=== PATIENT | male | born 1955 | race Caucasian/White ===

== ENCOUNTER 2017-12-27 06:40 | Emergency (ER) | payer MEDICAID ==
[~2017-12-27] VITALS: Ht 177.8 cm; Wt 90.7 kg
[2017-12-27 06:59] VITALS: BP 139/88
[2017-12-27] MEDS ORDERED: DOCUSATE SOD 100 MG CAP PO ONE (07:45)
[2017-12-27] MEDS ORDERED: FLEET ENEMA(ADULT) 135 ML PR ONE (08:15)
== END 2017-12-27 10:59 | disposition home or self-care (01) ==
LOC: ER 06:40 → EDBD 06:40 → ER 10:59
DX: K59.00 Constipation, unspecified (principal); F17.210 Nicotine dependence, cigarettes, uncomplicated; I10 Essential (primary) hypertension; Z88.2 Allergy status to sulfonamides
CPT/HCPCS: 74018; 93005

== ENCOUNTER 2017-12-28 07:38 | Inpatient (IN) | payer MEDICAID ==
[~2017-12-28] VITALS: Ht 180.3 cm; Wt 82.2 kg
[2017-12-28 08:41] LABS: Basophils # (auto) 0 uL; Basophils % (auto) 0.1 % (0.0-2.0); Eosinophils # (auto) 0 uL; Hemoglobin 17.4 g/dL (13.5-17.5); Lymphocytes # (auto) 0.7 uL; Lymphocytes % (auto) 3.1 % (10.0-50.0); Mean Corpuscular Hemoglobin 32.1 pg (28.0-32.0); Mean Corpuscular Volume 94.2 fL (80.0-100.0); Monocytes # (auto) 1.7 uL; Monocytes % (auto) 7.7 % (0.0-12.0); Neutrophils # (auto) 19.5 uL; Neutrophils % (auto) 89.1 % (37.0-80.0); Platelet Count (auto) 398 10^3/uL (140-450); Red Blood Cells 5.42 10^6/uL (4.5-5.90); Red Cell Distribution Width 13.5 % (11.8-14.3); White Blood Cell 21.9 10^3/uL (4.4-10.8)
[2017-12-28 09:01] LABS: Albumin 2.9 g/dL (3.4-5.0); BUN/Creatinine Ratio 14.6; Calcium 9.1 mg/dL (8.5-10.1); Potassium 4.6 mmol/L (3.5-5.1); Total Protein 6.3 g/dL (6.4-8.2)
[2017-12-28] MEDS ORDERED: PROMETHAZINE HCL 25 MG/ML 1ML IV ONE (09:45)
[2017-12-28] MEDS ORDERED: MORPHINE SULFATE 4 MG/ML SYR/VIAL IV ONE (09:45)
[2017-12-28] MEDS ORDERED: NALBUPHINE HCL 10 MG/1ml INJECTION IV ONE (10:00)
[2017-12-28] MEDS ORDERED: SODIUM CHLORIDE 0.9% 1,000 ML IV ONE ×4 (10:03→10:15)
[2017-12-28] MEDS ORDERED: VANCOMYCIN 1GM/250ML 250 ML IV ONE (10:15)
[2017-12-28] MEDS ORDERED: PIPERACILLIN-TAZOB 3.375GM 100 ML IV ONE (10:15)
[2017-12-28] MEDS ORDERED: FLEET ENEMA(ADULT) 135 ML PR ONE (11:00)
[2017-12-28] MEDS ORDERED: MORPHINE SULFATE 4 MG/ML SYR/VIAL IV PRN ×4 (11:00→18:00)
[2017-12-28] MEDS ORDERED: VANCOMYCIN PER PHARMACY 0 MG IV SCH (11:00)
[2017-12-28] MEDS ORDERED: SODIUM CHLORIDE 0.9% 500 ML IV ONE (11:00)
[2017-12-28] MEDS ORDERED: NITROGLYCERIN 0.4 MG SL TAB SL PRN (11:00)
[2017-12-28] MEDS ORDERED: ALBUTEROL SULF 2.5 MG/0.5ML(0.5%) NEB SOLN NEB PRN (11:00)
[2017-12-28] MEDS ORDERED: IPRATROPIUM BROM 0.5 MG/2.5ML INH SOL NEB PRN (11:00)
[2017-12-28 11:11] LABS: Lactic Acid w/Reflex 5.9 mmol/L (0.4-2.0)
[2017-12-28] MEDS ORDERED: DOCUSATE SOD 100 MG CAP PO ONE (11:15)
[2017-12-28] MEDS ORDERED: PANTOPRAZOLE 40 MG/10 ML VIAL IV ONE (11:30)
[2017-12-28 11:58] LABS: Cholesterol 97 mg/dL (< 200); HDL Cholesterol 65 mg/dL (40-59); LDL Cholesterol 27 mg/dL (< 100); Triglycerides 50 mg/dL (< 150)
[2017-12-28] MEDS ORDERED: LACTULOSE 20Gm/30ML SOLN PO SCH (12:00)
[2017-12-28] MEDS ORDERED: D5W/SOD CHLO 0.9% 1,000 ML IV SCH (12:00)
[2017-12-28] MEDS: ALBUMIN 25% 100 ML IV SCH ×3 (12:16→18:00)
[2017-12-28] MEDS ORDERED: metroNIDAZOLE 500MG/100ML 100 ML IV SCH (13:00)
[2017-12-28] MEDS ORDERED: VANCOMYCIN 1GM/250ML 250 ML IV SCH (14:00)
[2017-12-28 14:11] VITALS: BP 97/62
[2017-12-28] MEDS ORDERED: SODIUM BICARBONATE 50ML VIAL 50 ML in SOD CHL 0.45% 1,000 ML IV SCH (15:15)
[2017-12-28] MEDS ORDERED: LIDOCAINE 1% (LOCAL ANESTH.) PF 5ml SDV ONE (15:22)
[2017-12-28] MEDS ORDERED: SUCCINYLCHOLINE CHLORIDE 20 MG/ML 10ML VIAL IV ONE (15:22)
[2017-12-28] MEDS ORDERED: MIDAZOLAM HCL 1MG/1ML-2 ML VIAL ONE ×2 (15:24→17:18)
[2017-12-28] MEDS ORDERED: ceFAZolin 1GM/50ML 50 ML IV ONE (15:25)
[2017-12-28] MEDS ORDERED: ETOMIDATE (2MG/ML) 20ML VIAL IV ONE (15:26)
[2017-12-28] MEDS ORDERED: ROCURONIUM 10MG/ML 10ML VIAL IV ONE (15:28)
[2017-12-28] MEDS ORDERED: LIDOCAINE HCL 2% TOP JELLY 5ML TOP ONE (15:39)
[2017-12-28] MEDS ORDERED: fentaNYL CITRATE 100 MCG/2 ML VL ONE (16:29)
[2017-12-28] MEDS: PIPERACILLIN-TAZOB 2.25GM 50 ML IV SCH ×2 (17:00→23:00)
[2017-12-28] MEDS ORDERED: ePHEDrine SULFATE 50 MG/ML AMP IV PRN (17:00)
[2017-12-28] MEDS ORDERED: MIDAZOLAM HCL 1MG/1ML-2 ML VIAL IV PRN ×2 (17:00→18:00)
[2017-12-28] MEDS ORDERED: PHENYLEPHRINE HCL 10 MG/ML VL ONE (17:24)
[2017-12-28] MEDS: fentaNYL CITRATE 100 MCG/2 ML VL IV ONE ×2 (18:00→18:59)
[2017-12-28] MEDS ORDERED: D5W/LACTATED RINGERS 1,000 ML IV SCH (18:00)
[2017-12-28] MEDS ORDERED: D5W/SOD CHL 0.45%/KCL 20MEQ 1,000 ML IV ONE (18:00)
[2017-12-28] MEDS: MIDAZOLAM DRIP 50 mg/50mL 50 ML IV SCH (18:11)
[2017-12-28 18:17] LABS: INR 1.34 (0.9-1.15); Partial Thromboplastin Time 63.7 sec (22.64-33.71); Prothrombin Time 14.6 sec (9.37-12.3)
[2017-12-28] MEDS ORDERED: MIDAZOLAM DRIP 50 mg/50mL 50 ML IV ONE (18:20)
[2017-12-28 18:33] VITALS: BP 135/88
[2017-12-28] MEDS: fentaNYL Drip 2500mCg/250mlNS 250 ML IV SCH (18:50)
[2017-12-28] MEDS: PROPOFOL 100 ML IV SCH (19:09)
[2017-12-28] MEDS: SODIUM BICARBONATE 50ML VIAL 50 ML in SOD CHL 0.45% 1,000 ML IV SCH (19:15)
[2017-12-28] MEDS: MORPHINE SULFATE 4 MG/ML SYR/VIAL IV PRN (19:41)
[2017-12-28] MEDS ORDERED: PROPOFOL 100 ML IV ONE (20:18)
[2017-12-28 21:00] VITALS: BP 76/50
[2017-12-28] MEDS: D5W/SOD CHL 0.45%/KCL 20MEQ 1,000 ML IV SCH (21:15)
[2017-12-28] MEDS: ALBUMIN 25% 50 ML IV SCH ×3 (21:20→23:30)
[2017-12-28] MEDS: metroNIDAZOLE 500MG/100ML 100 ML IV SCH (22:00)
[2017-12-28] MEDS ORDERED: DOCUSATE SOD 100 MG CAP PO SCH (22:00)
[2017-12-28 22:12] LABS: Basophils # (auto) 0 uL; Basophils % (auto) 0.2 % (0.0-2.0); Eosinophils # (auto) 0 uL; Eosinophils % (auto) 0.1 % (0.0-7.0); Hematocrit 33.1 % (41.0-53.0); Hemoglobin 11.5 g/dL (13.5-17.5); Lymphocytes # (auto) 0.5 uL; Lymphocytes % (auto) 11.7 % (10.0-50.0); Mean Corpuscular Hemoglobin 32.8 pg (28.0-32.0); Mean Corpuscular Hgb Conc. 34.8 g/dL (32.0-36.0); Mean Corpuscular Volume 94.1 fL (80.0-100.0); Monocytes # (auto) 0.2 uL; Monocytes % (auto) 3.8 % (0.0-12.0); Neutrophils # (auto) 3.8 uL; Neutrophils % (auto) 84.2 % (37.0-80.0); Nucleated Red Blood Cells % 0.1 %; Platelet Count (auto) 285 10^3/uL (140-450); Red Blood Cells 3.52 10^6/uL (4.5-5.90); Red Cell Distribution Width 13.3 % (11.8-14.3); White Blood Cell 4.6 10^3/uL (4.4-10.8)
[2017-12-28 22:19] VITALS: BP 91/58
[2017-12-28 22:32] LABS: INR 1.34 (0.9-1.15); Prothrombin Time 14.6 sec (9.37-12.3)
[2017-12-28 22:33] LABS: BUN/Creatinine Ratio 29.8; Calcium 7.4 mg/dL (8.5-10.1); Potassium 4.2 mmol/L (3.5-5.1)
[2017-12-28 22:42] LABS: Partial Thromboplastin Time 85.6 sec (22.64-33.71)
[2017-12-28] MEDS ORDERED: NOREPINEPHRINE 8 MG/250ML KIT 250 ML IV SCH (23:04)
[2017-12-28] MEDS ORDERED: NOREPINEPHRINE 8 MG/250ML KIT 250 ML IV ONE (23:06)
[2017-12-29] VITALS (65 sets, daily range): BP systolic 89–131; BP diastolic 48–79
[2017-12-29] MEDS: ALBUMIN 25% 50 ML IV SCH (00:15)
[2017-12-29] MEDS: ALBUMIN 25% 100 ML IV SCH ×2 (02:00→10:00)
[2017-12-29] MEDS: SODIUM BICARBONATE 50ML VIAL 50 ML in SOD CHL 0.45% 1,000 ML IV SCH ×4 (02:15→23:15)
[2017-12-29 04:13] LABS: Basophils # (auto) 0 uL; Basophils % (auto) 0.1 % (0.0-2.0); Eosinophils # (auto) 0 uL; Eosinophils % (auto) 0.4 % (0.0-7.0); Hematocrit 26.2 % (41.0-53.0); Hemoglobin 9.4 g/dL (13.5-17.5); Lymphocytes # (auto) 0.3 uL; Lymphocytes % (auto) 11.4 % (10.0-50.0); Mean Corpuscular Hemoglobin 33.4 pg (28.0-32.0); Mean Corpuscular Hgb Conc. 35.8 g/dL (32.0-36.0); Mean Corpuscular Volume 93.3 fL (80.0-100.0); Monocytes # (auto) 0.2 uL; Monocytes % (auto) 5.2 % (0.0-12.0); Neutrophils # (auto) 2.4 uL; Neutrophils % (auto) 82.9 % (37.0-80.0); Platelet Count (auto) 234 10^3/uL (140-450); Red Blood Cells 2.81 10^6/uL (4.5-5.90); Red Cell Distribution Width 12.9 % (11.8-14.3); White Blood Cell 2.9 10^3/uL (4.4-10.8)
[2017-12-29 04:43] LABS: Bilirubin, Total 0.7 mg/dL (0.2-1.0); Magnesium 3.5 mg/dL (1.6-2.6); Phosphorus 3.1 mg/dL (2.5-4.90); Potassium 3.9 mmol/L (3.5-5.1); Total Protein 4.8 g/dL (6.4-8.2)
[2017-12-29] MEDS: PIPERACILLIN-TAZOB 2.25GM 50 ML IV SCH ×4 (05:20→23:58)
[2017-12-29] MEDS: metroNIDAZOLE 500MG/100ML 100 ML IV SCH ×3 (06:00→22:00)
[2017-12-29] MEDS: PANTOPRAZOLE 40 MG/10 ML VIAL IV SCH (10:40)
[2017-12-29] MEDS: fentaNYL Drip 2500mCg/250mlNS 250 ML IV SCH (10:43)
[2017-12-29] MEDS: D5W/SOD CHL 0.45%/KCL 20MEQ 1,000 ML IV SCH ×2 (11:07→11:12)
[2017-12-29] MEDS: ALBUTEROL SULF 2.5 MG/0.5ML(0.5%) NEB SOLN NEB SCH ×2 (11:58→19:00)
[2017-12-29] MEDS: IPRATROPIUM BROM 0.5 MG/2.5ML INH SOL NEB SCH ×2 (11:58→19:00)
[2017-12-29] MEDS: MIDAZOLAM DRIP 50 mg/50mL 50 ML IV SCH (18:44)
[2017-12-29] MEDS: PROPOFOL 100 ML IV SCH (19:09)
[2017-12-30] VITALS (64 sets, daily range): BP systolic 5–143; BP diastolic 46–107
[2017-12-30] MEDS: IPRATROPIUM BROM 0.5 MG/2.5ML INH SOL NEB SCH ×4 (00:06→18:00)
[2017-12-30] MEDS: ALBUTEROL SULF 2.5 MG/0.5ML(0.5%) NEB SOLN NEB SCH ×4 (00:06→18:00)
[2017-12-30 04:27] LABS: Basophils # (auto) 0 uL; Eosinophils # (auto) 0 uL; Eosinophils % (auto) 0.4 % (0.0-7.0); Lymphocytes # (auto) 0.6 uL; Monocytes # (auto) 0.3 uL; Nucleated Red Blood Cells % 0.1 %; Red Blood Cells 2.57 10^6/uL (4.5-5.90); White Blood Cell 6.4 10^3/uL (4.4-10.8)
[2017-12-30 04:29] LABS: Basophils % (auto) 0.2 % (0.0-2.0); Hemoglobin 8.4 g/dL (13.5-17.5); Lymphocytes % (auto) 8.8 % (10.0-50.0); Mean Corpuscular Hemoglobin 32.6 pg (28.0-32.0); Mean Corpuscular Hgb Conc. 34.8 g/dL (32.0-36.0); Mean Corpuscular Volume 93.5 fL (80.0-100.0); Monocytes % (auto) 4.8 % (0.0-12.0); Neutrophils # (auto) 5.5 uL; Neutrophils % (auto) 85.8 % (37.0-80.0); Platelet Count (auto) 199 10^3/uL (140-450); Red Cell Distribution Width 13.2 % (11.8-14.3)
[2017-12-30 04:43] LABS: Albumin 2.5 g/dL (3.4-5.0); Calcium 7.8 mg/dL (8.5-10.1); Potassium 3.8 mmol/L (3.5-5.1)
[2017-12-30 04:48] LABS: BUN/Creatinine Ratio 25.4; Bilirubin, Total 0.7 mg/dL (0.2-1.0); Total Protein 4.6 g/dL (6.4-8.2)
[2017-12-30] MEDS: PIPERACILLIN-TAZOB 2.25GM 50 ML IV SCH ×4 (05:00→23:07)
[2017-12-30] MEDS: SODIUM BICARBONATE 50ML VIAL 50 ML in SOD CHL 0.45% 1,000 ML IV SCH ×2 (06:15→12:08)
[2017-12-30] MEDS: metroNIDAZOLE 500MG/100ML 100 ML IV SCH ×3 (06:21→21:55)
[2017-12-30] MEDS: PANTOPRAZOLE 40 MG/10 ML VIAL IV SCH (09:48)
[2017-12-30 10:20] LABS: Hepatitis B Surface Antibody Negative
[2017-12-30 10:32] LABS: Hepatitis B Surface Antigen Negative (Negative)
[2017-12-30 10:53] LABS: Hepatitis C Antibody Negative (Negative)
[2017-12-30] MEDS ORDERED: FUROSEMIDE 20 MG/2 ML VIAL ONE (12:20)
[2017-12-30] MEDS ORDERED: POTASSIUM CHL 20MEQ/100ML 100 ML IV ONE (12:30)
[2017-12-30] MEDS ORDERED: FUROSEMIDE 20 MG/2 ML VIAL IV ONE (12:30)
[2017-12-30] MEDS: SODIUM CHLORIDE 0.9% 1,000 ML IV SCH ×2 (13:30→22:30)
[2017-12-30] MEDS: ONDANSETRON HCL 4 MG/2 ML VIAL IV PRN (21:56)
[2017-12-30] MEDS: MORPHINE SULFATE 4 MG/ML SYR/VIAL IV PRN (21:56)
[2017-12-31] VITALS (14 sets, daily range): BP systolic 94–164; BP diastolic 71–116
[2017-12-31] MEDS: IPRATROPIUM BROM 0.5 MG/2.5ML INH SOL NEB SCH ×4 (00:23→19:01)
[2017-12-31] MEDS: ALBUTEROL SULF 2.5 MG/0.5ML(0.5%) NEB SOLN NEB SCH ×4 (00:23→19:01)
[2017-12-31 04:04] LABS: Basophils # (auto) 0 uL; Basophils % (auto) 0.1 % (0.0-2.0); Eosinophils # (auto) 0 uL; Eosinophils % (auto) 0.1 % (0.0-7.0); Hematocrit 25.6 % (41.0-53.0); Lymphocytes # (auto) 0.7 uL; Lymphocytes % (auto) 6.8 % (10.0-50.0); Mean Corpuscular Hemoglobin 32.8 pg (28.0-32.0); Mean Corpuscular Volume 93.5 fL (80.0-100.0); Monocytes # (auto) 0.7 uL; Monocytes % (auto) 6.9 % (0.0-12.0); Neutrophils # (auto) 8.7 uL; Neutrophils % (auto) 86.1 % (37.0-80.0); Platelet Count (auto) 200 10^3/uL (140-450); Red Blood Cells 2.73 10^6/uL (4.5-5.90); White Blood Cell 10.1 10^3/uL (4.4-10.8)
[2017-12-31 04:18] LABS: Albumin 2.7 g/dL (3.4-5.0); BUN/Creatinine Ratio 22.1; Calcium 8.2 mg/dL (8.5-10.1); Potassium 3.3 mmol/L (3.5-5.1)
[2017-12-31 04:21] LABS: Bilirubin, Total 1.1 mg/dL (0.2-1.0); Total Protein 5.1 g/dL (6.4-8.2)
[2017-12-31] MEDS: metroNIDAZOLE 500MG/100ML 100 ML IV SCH ×3 (05:24→22:40)
[2017-12-31] MEDS: PIPERACILLIN-TAZOB 2.25GM 50 ML IV SCH ×2 (05:24→11:45)
[2017-12-31 06:43] LABS: Urine Bacteria NONE SEEN /hpf (None Seen); Urine Blood 2+ /uL (Negative); Urine Specific Gravity 1.014 (1.001-1.035); Urine WBC 2 /hpf (0 - 3)
[2017-12-31] MEDS ORDERED: TPN PER PHARMACY 0 ML IV SCH (09:15)
[2017-12-31 09:16] LABS: Magnesium 2.4 mg/dL (1.6-2.6); Phosphorus 2.6 mg/dL (2.5-4.90); Pre Albumin 9.9 mg/dL (20.0-40.0)
[2017-12-31 09:43] LABS: INR 0.95 (0.9-1.15); Partial Thromboplastin Time 35.2 sec (22.64-33.71); Prothrombin Time 10.4 sec (9.37-12.3)
[2017-12-31] MEDS ORDERED: DEXTROSE (50%) 50ML SYRG IV SCH (09:45)
[2017-12-31] MEDS ORDERED: LORazepam 2MG/ML-1ML VIAL IV ONE (11:45)
[2017-12-31] MEDS: PANTOPRAZOLE 40 MG/10 ML VIAL IV SCH (11:46)
[2017-12-31] MEDS: SODIUM CHLORIDE 0.9% 1,000 ML IV SCH ×2 (11:46→17:54)
[2017-12-31] MEDS: ACCU-CHEK COMFORT CURVE STRIP VI SCH ×2 (12:00→17:53)
[2017-12-31] MEDS: InsuLIN REG 1unit/0.01ml Soln (100units/ml) SC SCH ×2 (12:00→17:53)
[2017-12-31] MEDS ORDERED: LIDOCAINE 1% (LOCAL ANESTH.) PF 5ml SDV ID ONE (12:30)
[2017-12-31] MEDS ORDERED: POTASSIUM CHLORIDE 20 MEQ, LIDOCAINE 1% (LOCAL ANESTH.) 2 ML in SODIUM CHL 0.9% 100 ML IV ONE (14:30)
[2017-12-31] MEDS ORDERED: HYDR-4798 PO (16:23)
[2017-12-31] MEDS ORDERED: TEMA30CA PO (16:23)
[2017-12-31] MEDS ORDERED: SIMV-13 PO (16:23)
[2017-12-31] MEDS ORDERED: METH5TAB2 PO (16:23)
[2017-12-31] MEDS ORDERED: IBUP800T24 PO (16:23)
[2017-12-31] MEDS ORDERED: OMEP20TA PO (16:23)
[2017-12-31] MEDS ORDERED: NALO1TAB2 PO (16:23)
[2017-12-31] MEDS: LEVOFLOXACIN 500MG 100 ML IV SCH (16:34)
[2017-12-31] MEDS: LORazepam 2MG/ML-1ML VIAL IV PRN (17:11)
[2017-12-31] MEDS: MORPHINE SULFATE 4 MG/ML SYR/VIAL IV PRN (18:39)
[2017-12-31] MEDS ORDERED: MORPHINE SULFATE 4 MG/ML SYR/VIAL IV ONE (19:15)
[2017-12-31] MEDS ORDERED: PPN PER PHARMACY IV NR ×8 (20:00)
[2017-12-31] MEDS: SODIUM CHLOR 0.9% PF (SALINE LOCK) 10ML VIAL IV SCH (22:41)
[2018-01-01] VITALS: BP 142/86
[2018-01-01] MEDS: IPRATROPIUM BROM 0.5 MG/2.5ML INH SOL NEB SCH ×4 (00:20→11:21)
[2018-01-01] MEDS: ALBUTEROL SULF 2.5 MG/0.5ML(0.5%) NEB SOLN NEB SCH ×4 (00:20→18:00)
[2018-01-01] MEDS: MORPHINE SULFATE 4 MG/ML SYR/VIAL IV PRN ×3 (01:26→21:15)
[2018-01-01 04:00] VITALS: BP 138/84
[2018-01-01] MEDS: SODIUM CHLORIDE 0.9% 1,000 ML IV SCH ×2 (04:30→12:31)
[2018-01-01 05:19] LABS: Basophils # (auto) 0 uL; Basophils % (auto) 0.4 % (0.0-2.0); Eosinophils # (auto) 0 uL; Eosinophils % (auto) 0.1 % (0.0-7.0); Hematocrit 25.4 % (41.0-53.0); Hemoglobin 8.9 g/dL (13.5-17.5); Lymphocytes # (auto) 0.6 uL; Lymphocytes % (auto) 7.8 % (10.0-50.0); Mean Corpuscular Hemoglobin 32.6 pg (28.0-32.0); Mean Corpuscular Volume 93.2 fL (80.0-100.0); Monocytes # (auto) 1.1 uL; Monocytes % (auto) 13.4 % (0.0-12.0); Neutrophils # (auto) 6.5 uL; Neutrophils % (auto) 78.3 % (37.0-80.0); Nucleated Red Blood Cells % 0.1 %; Platelet Count (auto) 222 10^3/uL (140-450); Red Blood Cells 2.72 10^6/uL (4.5-5.90); Red Cell Distribution Width 13.8 % (11.8-14.3); White Blood Cell 8.3 10^3/uL (4.4-10.8)
[2018-01-01 05:39] LABS: Albumin 2.6 g/dL (3.4-5.0); Bilirubin, Total 0.8 mg/dL (0.2-1.0); Calcium 7.9 mg/dL (8.5-10.1); Magnesium 2.4 mg/dL (1.6-2.6); Potassium 3.3 mmol/L (3.5-5.1); Total Protein 5.4 g/dL (6.4-8.2)
[2018-01-01] MEDS: InsuLIN REG 1unit/0.01ml Soln (100units/ml) SC SCH ×5 (06:00→23:21)
[2018-01-01] MEDS: metroNIDAZOLE 500MG/100ML 100 ML IV SCH ×3 (06:00→21:14)
[2018-01-01] MEDS: ACCU-CHEK COMFORT CURVE STRIP VI SCH ×5 (06:00→23:16)
[2018-01-01] MEDS: SODIUM CHLOR 0.9% PF (SALINE LOCK) 10ML VIAL IV SCH ×2 (10:00→21:15)
[2018-01-01] MEDS: LEVOFLOXACIN 500MG 100 ML IV SCH (10:39)
[2018-01-01] MEDS: PANTOPRAZOLE 40 MG/10 ML VIAL IV SCH (10:40)
[2018-01-01] MEDS ORDERED: POTASSIUM PHOSP 26.4MEQ(18MMOL) IN NS 100 ML IV ONE (11:45)
[2018-01-01 12:00] VITALS: BP 139/89
[2018-01-01 16:17] VITALS: BP 155/94
[2018-01-01 19:56] VITALS: BP 159/96
[2018-01-01] MEDS ORDERED: TPN PER PHARMACY IV NR ×10 (20:00)
[2018-01-02] MEDS: IPRATROPIUM BROM 0.5 MG/2.5ML INH SOL NEB SCH ×5 (00:52→18:31)
[2018-01-02] MEDS: ALBUTEROL SULF 2.5 MG/0.5ML(0.5%) NEB SOLN NEB SCH ×4 (00:52→18:30)
[2018-01-02] MEDS: MORPHINE SULFATE 4 MG/ML SYR/VIAL IV PRN ×3 (02:51→21:32)
[2018-01-02] MEDS: ACCU-CHEK COMFORT CURVE STRIP VI SCH ×3 (05:22→18:13)
[2018-01-02] MEDS: metroNIDAZOLE 500MG/100ML 100 ML IV SCH ×4 (05:22→21:31)
[2018-01-02] MEDS: InsuLIN REG 1unit/0.01ml Soln (100units/ml) SC SCH ×5 (05:22→23:49)
[2018-01-02 05:29] LABS: Basophils # (auto) 0 uL; Basophils % (auto) 0.1 % (0.0-2.0); Eosinophils # (auto) 0 uL; Eosinophils % (auto) 0.1 % (0.0-7.0); Hematocrit 29.3 % (41.0-53.0); Hemoglobin 10.1 g/dL (13.5-17.5); Lymphocytes % (auto) 8.2 % (10.0-50.0); Mean Corpuscular Hemoglobin 31.9 pg (28.0-32.0); Mean Corpuscular Hgb Conc. 34.4 g/dL (32.0-36.0); Mean Corpuscular Volume 92.7 fL (80.0-100.0); Monocytes # (auto) 1.4 uL; Monocytes % (auto) 11.6 % (0.0-12.0); Neutrophils # (auto) 9.5 uL; Nucleated Red Blood Cells % 0.4 %; Platelet Count (auto) 272 10^3/uL (140-450); Red Blood Cells 3.16 10^6/uL (4.5-5.90); White Blood Cell 11.9 10^3/uL (4.4-10.8)
[2018-01-02 05:53] LABS: Albumin 2.7 g/dL (3.4-5.0); BUN/Creatinine Ratio 24.6; Bilirubin, Total 1.1 mg/dL (0.2-1.0); Calcium 8.3 mg/dL (8.5-10.1); Magnesium 2.1 mg/dL (1.6-2.6); Phosphorus 2.4 mg/dL (2.5-4.90); Total Protein 5.9 g/dL (6.4-8.2)
[2018-01-02 06:08] VITALS: BP 154/92
[2018-01-02] MEDS: SODIUM CHLORIDE 0.9% 1,000 ML IV SCH (06:58)
[2018-01-02] MEDS ORDERED: POTASSIUM CHL 20 Meq TABLET PO ONE (07:15)
[2018-01-02 08:00] VITALS: BP 153/98
[2018-01-02] MEDS: LEVOFLOXACIN 500MG 100 ML IV SCH (10:00)
[2018-01-02] MEDS: PANTOPRAZOLE 40 MG/10 ML VIAL IV SCH (10:00)
[2018-01-02] MEDS: SODIUM CHLOR 0.9% PF (SALINE LOCK) 10ML VIAL IV SCH ×2 (10:00→21:35)
[2018-01-02] MEDS ORDERED: POTASSIUM CHLORIDE 40 MEQ, LIDOCAINE 1% (LOCAL ANESTH.) 4 ML in SODIUM CHL 0.9% 250 ML IV ONE (10:00)
[2018-01-02 11:50] VITALS: BP 151/91
[2018-01-02] MEDS ORDERED: POTASSIUM PHOSP 26.4MEQ(18MMOL) IN NS 100 ML IV ONE (13:00)
[2018-01-02] MEDS: ONDANSETRON HCL 4 MG/2 ML VIAL IV PRN (13:33)
[2018-01-02 15:50] VITALS: BP 144/83
[2018-01-02 19:50] VITALS: BP 165/87
[2018-01-02] MEDS ORDERED: FAT EMULSION IV NR ×10 (20:00)
[2018-01-02] MEDS ORDERED: POTASSIUM PHOSPHATE IV NR ×10 (20:00)
[2018-01-02] MEDS ORDERED: [UNRECOGNIZED DRUG - OTHER] IV NR ×10 (20:00)
[2018-01-02] MEDS ORDERED: POTASSIUM ACETATE IV NR ×10 (20:00)
[2018-01-02] MEDS: LORazepam 2MG/ML-1ML VIAL IV PRN (21:32)
[2018-01-03] MEDS: IPRATROPIUM BROM 0.5 MG/2.5ML INH SOL NEB SCH ×4 (00:50→19:17)
[2018-01-03] MEDS: ALBUTEROL SULF 2.5 MG/0.5ML(0.5%) NEB SOLN NEB SCH ×4 (00:50→19:17)
[2018-01-03] MEDS: SODIUM CHLORIDE 0.9% 1,000 ML IV SCH (03:00)
[2018-01-03] MEDS: ACCU-CHEK COMFORT CURVE STRIP VI SCH ×5 (06:00→23:33)
[2018-01-03] MEDS: InsuLIN REG 1unit/0.01ml Soln (100units/ml) SC SCH ×4 (06:00→23:34)
[2018-01-03] MEDS: metroNIDAZOLE 500MG/100ML 100 ML IV SCH ×3 (06:00→20:54)
[2018-01-03 06:23] LABS: Albumin 2.6 g/dL (3.4-5.0); Calcium 8.6 mg/dL (8.5-10.1); Magnesium 2.3 mg/dL (1.6-2.6); Potassium 3.5 mmol/L (3.5-5.1)
[2018-01-03 06:27] LABS: BUN/Creatinine Ratio 31.7; Bilirubin, Total 1.2 mg/dL (0.2-1.0); Phosphorus 3.4 mg/dL (2.5-4.90); Total Protein 5.9 g/dL (6.4-8.2)
[2018-01-03 08:00] VITALS: BP 149/99
[2018-01-03] MEDS: SODIUM CHLOR 0.9% PF (SALINE LOCK) 10ML VIAL IV SCH ×2 (10:08→20:54)
[2018-01-03] MEDS: PANTOPRAZOLE 40 MG/10 ML VIAL IV SCH (10:08)
[2018-01-03] MEDS: LEVOFLOXACIN 500MG 100 ML IV SCH (10:08)
[2018-01-03] MEDS: MORPHINE SULFATE 4 MG/ML SYR/VIAL IV PRN ×3 (10:20→20:53)
[2018-01-03 12:37] VITALS: BP 130/67
[2018-01-03 15:53] VITALS: BP 131/87
[2018-01-03 19:50] VITALS: BP 149/106
[2018-01-03] MEDS ORDERED: TPN PER PHARMACY IV ONE ×10 (20:00)
[2018-01-03] MEDS: ONDANSETRON HCL 4 MG/2 ML VIAL IV PRN (20:53)
[2018-01-04] VITALS: BP 140/96
[2018-01-04] MEDS: ALBUTEROL SULF 2.5 MG/0.5ML(0.5%) NEB SOLN NEB SCH ×4 (00:55→19:04)
[2018-01-04] MEDS: IPRATROPIUM BROM 0.5 MG/2.5ML INH SOL NEB SCH ×4 (00:55→19:04)
[2018-01-04] MEDS: ONDANSETRON HCL 4 MG/2 ML VIAL IV PRN ×4 (01:38→18:49)
[2018-01-04] MEDS: MORPHINE SULFATE 4 MG/ML SYR/VIAL IV PRN ×5 (01:38→18:49)
[2018-01-04 04:00] VITALS: BP 148/85
[2018-01-04] MEDS: metroNIDAZOLE 500MG/100ML 100 ML IV SCH ×3 (05:30→21:48)
[2018-01-04 05:31] LABS: Basophils # (auto) 0.1 uL; Basophils % (auto) 0.6 % (0.0-2.0); Eosinophils # (auto) 0 uL; Eosinophils % (auto) 0.1 % (0.0-7.0); Hematocrit 31.1 % (41.0-53.0); Hemoglobin 10.6 g/dL (13.5-17.5); Lymphocytes # (auto) 1.5 uL; Lymphocytes % (auto) 6.5 % (10.0-50.0); Mean Corpuscular Hgb Conc. 34.1 g/dL (32.0-36.0); Mean Corpuscular Volume 93.9 fL (80.0-100.0); Monocytes # (auto) 1.9 uL; Neutrophils # (auto) 19.8 uL; Neutrophils % (auto) 84.8 % (37.0-80.0); Nucleated Red Blood Cells % 0.1 %; Platelet Count (auto) 432 10^3/uL (140-450); Red Blood Cells 3.31 10^6/uL (4.5-5.90); Red Cell Distribution Width 14.1 % (11.8-14.3); White Blood Cell 23.3 10^3/uL (4.4-10.8)
[2018-01-04] MEDS: ACCU-CHEK COMFORT CURVE STRIP VI SCH (05:39)
[2018-01-04] MEDS: InsuLIN REG 1unit/0.01ml Soln (100units/ml) SC SCH (06:00)
[2018-01-04 06:17] LABS: Albumin 2.5 g/dL (3.4-5.0); Bilirubin, Total 1.5 mg/dL (0.2-1.0); Calcium 6.5 mg/dL (8.5-10.1); Magnesium 2.4 mg/dL (1.6-2.6); Phosphorus 3.4 mg/dL (2.5-4.90); Potassium 4.7 mmol/L (3.5-5.1); Total Protein 5.9 g/dL (6.4-8.2)
[2018-01-04 08:00] VITALS: BP 138/100
[2018-01-04] MEDS ORDERED: FLUCONAZOLE 200MG/100ML 100 ML IV ONE (10:15)
[2018-01-04 11:46] VITALS: BP 123/84
[2018-01-04] MEDS: LEVOFLOXACIN 500MG 100 ML IV SCH (12:21)
[2018-01-04] MEDS: PANTOPRAZOLE 40 MG/10 ML VIAL IV SCH (12:21)
[2018-01-04] MEDS: SODIUM CHLOR 0.9% PF (SALINE LOCK) 10ML VIAL IV SCH ×2 (12:23→21:48)
[2018-01-04 16:00] VITALS: BP 141/80
[2018-01-04 22:08] VITALS: BP 120/74
[2018-01-05] MEDS: MORPHINE SULFATE 4 MG/ML SYR/VIAL IV PRN (00:18)
[2018-01-05] MEDS: ONDANSETRON HCL 4 MG/2 ML VIAL IV PRN (00:23)
[2018-01-05] MEDS: ALBUTEROL SULF 2.5 MG/0.5ML(0.5%) NEB SOLN NEB SCH ×4 (00:35→20:51)
[2018-01-05] MEDS: IPRATROPIUM BROM 0.5 MG/2.5ML INH SOL NEB SCH ×4 (00:35→20:51)
[2018-01-05 05:14] VITALS: BP 127/92
[2018-01-05] MEDS: metroNIDAZOLE 500MG/100ML 100 ML IV SCH ×3 (05:39→21:30)
[2018-01-05 06:25] LABS: Basophils # (auto) 0 uL; Basophils % (auto) 0.1 % (0.0-2.0); Eosinophils # (auto) 0.1 uL; Mean Corpuscular Volume 94.1 fL (80.0-100.0); Neutrophils % (auto) 84.5 % (37.0-80.0)
[2018-01-05 06:27] LABS: Eosinophils % (auto) 0.3 % (0.0-7.0); Hematocrit 30.6 % (41.0-53.0); Hemoglobin 10.5 g/dL (13.5-17.5); Lymphocytes # (auto) 1.5 uL; Lymphocytes % (auto) 7.6 % (10.0-50.0); Mean Corpuscular Hemoglobin 32.3 pg (28.0-32.0); Mean Corpuscular Hgb Conc. 34.3 g/dL (32.0-36.0); Monocytes # (auto) 1.5 uL; Monocytes % (auto) 7.5 % (0.0-12.0); Neutrophils # (auto) 16.4 uL; Platelet Count (auto) 468 10^3/uL (140-450); Red Blood Cells 3.26 10^6/uL (4.5-5.90); White Blood Cell 19.4 10^3/uL (4.4-10.8)
[2018-01-05 06:34] LABS: Potassium 3.8 mmol/L (3.5-5.1)
[2018-01-05 06:40] LABS: BUN/Creatinine Ratio 35.1; Calcium 8.2 mg/dL (8.5-10.1)
[2018-01-05 09:45] VITALS: BP 132/79
[2018-01-05] MEDS: SODIUM CHLOR 0.9% PF (SALINE LOCK) 10ML VIAL IV SCH ×2 (10:00→21:31)
[2018-01-05] MEDS ORDERED: FLUCONAZOLE 200MG/100ML 100 ML IV SCH (10:00)
[2018-01-05] MEDS: LEVOFLOXACIN 500MG 100 ML IV SCH (10:19)
[2018-01-05] MEDS: PANTOPRAZOLE 40 MG/10 ML VIAL IV SCH (10:19)
[2018-01-05 13:56] VITALS: BP 112/84
[2018-01-05 16:25] VITALS: BP 133/69
[2018-01-05] MEDS: IBUPROFEN 400 MG TAB PO PRN (20:03)
[2018-01-05] MEDS: TEMAZEPAM 15 MG CAP PO PRN (21:30)
[2018-01-05 22:00] VITALS: BP 141/67
[2018-01-06] MEDS: ALBUTEROL SULF 2.5 MG/0.5ML(0.5%) NEB SOLN NEB SCH ×5 (00:39→19:39)
[2018-01-06] MEDS: IPRATROPIUM BROM 0.5 MG/2.5ML INH SOL NEB SCH ×5 (00:39→19:39)
[2018-01-06] MEDS: IBUPROFEN 400 MG TAB PO PRN ×3 (03:33→17:51)
[2018-01-06] MEDS: metroNIDAZOLE 500MG/100ML 100 ML IV SCH (05:29)
[2018-01-06 05:41] LABS: Basophils # (auto) 0 uL; Eosinophils # (auto) 0 uL; Eosinophils % (auto) 0.3 % (0.0-7.0); Lymphocytes # (auto) 1.3 uL; White Blood Cell 13.6 10^3/uL (4.4-10.8)
[2018-01-06 05:43] LABS: Basophils % (auto) 0.3 % (0.0-2.0); Hematocrit 33.7 % (41.0-53.0); Hemoglobin 11.3 g/dL (13.5-17.5); Lymphocytes % (auto) 9.8 % (10.0-50.0); Mean Corpuscular Hemoglobin 31.5 pg (28.0-32.0); Mean Corpuscular Hgb Conc. 33.6 g/dL (32.0-36.0); Mean Corpuscular Volume 93.9 fL (80.0-100.0); Monocytes # (auto) 1.2 uL; Monocytes % (auto) 8.7 % (0.0-12.0); Neutrophils % (auto) 80.9 % (37.0-80.0); Platelet Count (auto) 627 10^3/uL (140-450); Red Blood Cells 3.59 10^6/uL (4.5-5.90); Red Cell Distribution Width 13.8 % (11.8-14.3)
[2018-01-06 05:53] VITALS: BP 130/75
[2018-01-06 09:00] VITALS: BP 129/87
[2018-01-06] MEDS: SODIUM CHLOR 0.9% PF (SALINE LOCK) 10ML VIAL IV SCH ×2 (10:00→21:14)
[2018-01-06] MEDS: LEVOFLOXACIN 500MG 100 ML IV SCH (10:18)
[2018-01-06] MEDS: PANTOPRAZOLE 40 MG TAB PO SCH (10:19)
[2018-01-06 13:00] VITALS: BP 137/76
[2018-01-06] MEDS: metroNIDAZOLE 500 MG TAB PO SCH ×2 (14:00→21:14)
[2018-01-06 17:00] VITALS: BP 143/77
[2018-01-06] MEDS: TEMAZEPAM 15 MG CAP PO PRN (21:14)
[2018-01-06 22:00] VITALS: BP 141/91
[2018-01-07] MEDS: IBUPROFEN 400 MG TAB PO PRN (03:34)
[2018-01-07 05:00] VITALS: BP 132/79
[2018-01-07] MEDS: metroNIDAZOLE 500 MG TAB PO SCH (05:24)
[2018-01-07 05:59] LABS: Eosinophils # (auto) 0.1 uL; Hemoglobin 10.5 g/dL (13.5-17.5); Monocytes # (auto) 1.4 uL; Neutrophils # (auto) 9.1 uL; Red Cell Distribution Width 13.8 % (11.8-14.3)
[2018-01-07 06:07] LABS: Basophils # (auto) 0.1 uL; Basophils % (auto) 0.4 % (0.0-2.0); Eosinophils % (auto) 0.7 % (0.0-7.0); Hematocrit 31.3 % (41.0-53.0); Lymphocytes # (auto) 1.4 uL; Lymphocytes % (auto) 11.9 % (10.0-50.0); Mean Corpuscular Hemoglobin 31.3 pg (28.0-32.0); Mean Corpuscular Hgb Conc. 33.4 g/dL (32.0-36.0); Mean Corpuscular Volume 93.7 fL (80.0-100.0); Monocytes % (auto) 11.3 % (0.0-12.0); Neutrophils % (auto) 75.7 % (37.0-80.0); Platelet Count (auto) 748 10^3/uL (140-450); Red Blood Cells 3.35 10^6/uL (4.5-5.90)
[2018-01-07] MEDS: ALBUTEROL SULF 2.5 MG/0.5ML(0.5%) NEB SOLN NEB SCH ×2 (06:41→13:05)
[2018-01-07] MEDS: IPRATROPIUM BROM 0.5 MG/2.5ML INH SOL NEB SCH ×2 (06:41→13:05)
[2018-01-07 09:00] VITALS: BP 139/93
[2018-01-07] MEDS: SODIUM CHLOR 0.9% PF (SALINE LOCK) 10ML VIAL IV SCH (09:27)
[2018-01-07] MEDS: PANTOPRAZOLE 40 MG TAB PO SCH (09:28)
[2018-01-07] MEDS ORDERED: FLUCONAZOLE 100 MG TAB PO SCH (10:00)
[2018-01-07] MEDS ORDERED: LEVOFLOXACIN 500 MG TAB PO SCH (10:00)
[2018-01-07 13:00] VITALS: BP 146/81
[2018-01-07 13:56] VITALS: BP 146/81
== END 2018-01-07 17:01 | disposition home or self-care (01) | DRG 710 ==
LOC: EDBD 07:38 → ER 07:38 → TELE 07:39 → ICU WEST 20:30 → DOU IN ICU 12-31 08:53 → TELE-WESTW 01-04 17:39 → WEST WING 01-07 03:07
PROVIDERS: ADMIT Internal Medicine; ATTEND Internal Medicine
PROC: 02HV33Z Insertion of Infusion Device into Superior Vena Cava, Percutaneous Approach (ICD-10-PCS; 2017-12-28)
PROC: 5A1945Z Respiratory Ventilation, 24-96 Consecutive Hours (ICD-10-PCS; 2017-12-28)
PROC: 0DTE0ZZ Resection of Large Intestine, Open Approach (ICD-10-PCS; 2017-12-28)
PROC: 0D1N0Z4 Bypass Sigmoid Colon to Cutaneous, Open Approach (ICD-10-PCS; 2017-12-28)
PROC: 0JH63XZ Insertion of Tunneled Vascular Access Device into Chest Subcutaneous Tissue and Fascia, Percutaneous Approach (ICD-10-PCS; 2017-12-28)
PROC: 0D1B0Z4 Bypass Ileum to Cutaneous, Open Approach (ICD-10-PCS; principal; 2017-12-28 15:58)
PROC: 30233N1 Transfusion of Nonautologous Red Blood Cells into Peripheral Vein, Percutaneous Approach (ICD-10-PCS; 2017-12-30)
PROC: 02HV33Z Insertion of Infusion Device into Superior Vena Cava, Percutaneous Approach (ICD-10-PCS; 2017-12-31)
DX: A41.9 Sepsis, unspecified organism (principal); N17.0 Acute kidney failure with tubular necrosis; J96.00 Acute respiratory failure, unspecified whether with hypoxia or hypercapnia; J15.211 Pneumonia due to Methicillin susceptible Staphylococcus aureus; K55.9 Vascular disorder of intestine, unspecified; K59.31 Toxic megacolon; E44.0 Moderate protein-calorie malnutrition; I11.9 Hypertensive heart disease without heart failure; E87.1 Hypo-osmolality and hyponatremia; R65.20 Severe sepsis without septic shock; J44.9 Chronic obstructive pulmonary disease, unspecified; D64.9 Anemia, unspecified; E86.0 Dehydration; F17.210 Nicotine dependence, cigarettes, uncomplicated; G47.00 Insomnia, unspecified; K59.00 Constipation, unspecified; M19.90 Unspecified osteoarthritis, unspecified site; R79.89 Other specified abnormal findings of blood chemistry; B95.61 Methicillin susceptible Staphylococcus aureus infection as the cause of diseases classified elsewhere; E87.6 Hypokalemia; Z79.899 Other long term (current) drug therapy; Z88.2 Allergy status to sulfonamides; Z68.25 Body mass index [BMI] 25.0-25.9, adult
CPT/HCPCS: 36415; 36556; 36569; 36600; 71045; 74018; 74176; 80048; 80053; 80061; 81001; 82040; 82805; 82962; 83605; 83735; 84100; 84443; 84478; 85025; 85610; 85730; 86706; 86803; 86850; 86900; 86901; 86920; 87040; 87070; 87077; 87081; 87186; 87205; 87340; 93005; 94002; 94003; 94640; 96374; 96375; 97116; 97530; 99291; A4565; C9113; J0330; J0690; J1450; J1815; J1956; J2001; J2250; J2405; J2543; J2704; J3480; J3490; J7042; P9047

== ENCOUNTER 2018-01-13 11:27 | Inpatient (IN) | payer MEDICAID ==
[~2018-01-13] VITALS: Ht 180.3 cm; Wt 71.0 kg
[~2018-01-13 11:27] MED LIST: HYDR-4798 PO; IBUP800T24 PO; METH5TAB2 PO; NALO1TAB2 PO; OMEP20TA PO; SIMV-13 PO; TEMA30CA PO
[2018-01-13 12:32] LABS: Basophils # (auto) 0.1 uL; Basophils % (auto) 0.9 % (0.0-2.0); Eosinophils # (auto) 0.1 uL; Eosinophils % (auto) 0.7 % (0.0-7.0); Hematocrit 41.5 % (41.0-53.0); Hemoglobin 13.8 g/dL (13.5-17.5); Lymphocytes # (auto) 1.7 uL; Lymphocytes % (auto) 14.2 % (10.0-50.0); Mean Corpuscular Hemoglobin 31.4 pg (28.0-32.0); Mean Corpuscular Hgb Conc. 33.2 g/dL (32.0-36.0); Mean Corpuscular Volume 94.6 fL (80.0-100.0); Monocytes # (auto) 0.9 uL; Monocytes % (auto) 7.5 % (0.0-12.0); Neutrophils # (auto) 9.1 uL; Neutrophils % (auto) 76.7 % (37.0-80.0); Red Blood Cells 4.39 10^6/uL (4.5-5.90); Red Cell Distribution Width 14.8 % (11.8-14.3); White Blood Cell 11.8 10^3/uL (4.4-10.8)
[2018-01-13 12:35] LABS: Platelet Count (auto) 1472 10^3/uL (140-450)
[2018-01-13 12:54] LABS: Albumin 3.8 g/dL (3.4-5.0); BUN/Creatinine Ratio 14.7; Bilirubin, Total 0.4 mg/dL (0.2-1.0); Calcium 9.5 mg/dL (8.5-10.1); Potassium 4.9 mmol/L (3.5-5.1); Total Protein 8.1 g/dL (6.4-8.2)
[2018-01-13] MEDS ORDERED: SODIUM CHLORIDE 0.9% 500 ML IVB ONE (14:29)
[2018-01-13] MEDS ORDERED: NITROGLYCERIN 0.4 MG SL TAB SL PRN (15:00)
[2018-01-13] MEDS ORDERED: LORazepam 2MG/ML-1ML VIAL IV PRN (15:00)
[2018-01-13] MEDS ORDERED: MORPHINE SULFATE 8mg/ml INJ SDV IV PRN ×3 (15:00)
[2018-01-13] MEDS ORDERED: LEVOFLOXACIN 500MG 100 ML IV ONE (15:00)
[2018-01-13] MEDS ORDERED: ALBUTEROL SULF 2.5 MG/0.5ML(0.5%) NEB SOLN NEB PRN (15:00)
[2018-01-13 15:42] LABS: Amylase 225 U/L (25-115); Lipase 1851 U/L (73-393)
[2018-01-13] MEDS: SODIUM CHLORIDE 0.9% 1,000 ML IV SCH (16:28)
[2018-01-13 21:33] VITALS: BP 93/67
[2018-01-13 22:00] VITALS: BP 118/89
[2018-01-13] MEDS: metroNIDAZOLE 500MG/100ML 100 ML IV SCH (23:29)
[2018-01-13] MEDS: PROMETHAZINE HCL 25 MG/ML 1ML IV PRN (23:30)
[2018-01-14] MEDS: SODIUM CHLORIDE 0.9% 1,000 ML IV SCH ×3 (00:58→21:30)
[2018-01-14 05:00] VITALS: BP 125/85
[2018-01-14] MEDS: metroNIDAZOLE 500MG/100ML 100 ML IV SCH ×3 (05:40→22:42)
[2018-01-14 06:45] LABS: Basophils # (auto) 0 uL; Eosinophils # (auto) 0 uL; Hematocrit 38.8 % (41.0-53.0); Hemoglobin 13.4 g/dL (13.5-17.5)
[2018-01-14 06:47] LABS: Basophils % (auto) 0.3 % (0.0-2.0); Eosinophils % (auto) 0.1 % (0.0-7.0); Lymphocytes % (auto) 7.1 % (10.0-50.0); Mean Corpuscular Hemoglobin 32.2 pg (28.0-32.0); Mean Corpuscular Hgb Conc. 34.4 g/dL (32.0-36.0); Mean Corpuscular Volume 93.6 fL (80.0-100.0); Monocytes # (auto) 0.6 uL; Monocytes % (auto) 4.1 % (0.0-12.0); Neutrophils # (auto) 12.2 uL; Neutrophils % (auto) 88.4 % (37.0-80.0); Red Blood Cells 4.15 10^6/uL (4.5-5.90); Red Cell Distribution Width 14.3 % (11.8-14.3); White Blood Cell 13.7 10^3/uL (4.4-10.8)
[2018-01-14 07:04] LABS: Albumin 3.7 g/dL (3.4-5.0); Bilirubin, Total 0.6 mg/dL (0.2-1.0); Calcium 9.5 mg/dL (8.5-10.1); Potassium 5.2 mmol/L (3.5-5.1); Total Protein 7.7 g/dL (6.4-8.2)
[2018-01-14 07:51] LABS: Platelet Count (auto) 1249 10^3/uL (140-450)
[2018-01-14] MEDS: PROMETHAZINE HCL 25 MG/ML 1ML IV PRN ×2 (09:37→18:41)
[2018-01-14] MEDS: LEVOFLOXACIN 500MG 100 ML IV SCH (09:37)
[2018-01-14] MEDS: ENOXAPARIN SOD 40 MG/0.4 ML SYRINGE SC SCH (09:38)
[2018-01-14] MEDS: PANTOPRAZOLE 40 MG TAB PO SCH (14:11)
[2018-01-14 14:26] VITALS: BP 128/71
[2018-01-14 17:11] VITALS: BP 129/88
[2018-01-14] MEDS: CYCLOBENZAPRINE HCL 10 MG TAB PO PRN (18:41)
[2018-01-14] MEDS: TEMAZEPAM 15 MG CAP PO PRN (22:56)
[2018-01-14 23:43] VITALS: BP 121/80
[2018-01-15 05:43] VITALS: BP 118/85
[2018-01-15] MEDS: metroNIDAZOLE 500MG/100ML 100 ML IV SCH ×3 (06:10→21:02)
[2018-01-15] MEDS: SODIUM CHLORIDE 0.9% 1,000 ML IV SCH ×2 (06:10→16:49)
[2018-01-15 07:30] LABS: Basophils # (auto) 0 uL; Basophils % (auto) 0.1 % (0.0-2.0); Eosinophils # (auto) 0 uL; White Blood Cell 16.9 10^3/uL (4.4-10.8)
[2018-01-15 07:31] LABS: BUN/Creatinine Ratio 37.8; Calcium 9.5 mg/dL (8.5-10.1); Potassium 4.9 mmol/L (3.5-5.1)
[2018-01-15 07:33] LABS: Hematocrit 37.9 % (41.0-53.0); Hemoglobin 13.4 g/dL (13.5-17.5); Lymphocytes % (auto) 6.2 % (10.0-50.0); Mean Corpuscular Hemoglobin 33.3 pg (28.0-32.0); Mean Corpuscular Hgb Conc. 35.2 g/dL (32.0-36.0); Mean Corpuscular Volume 94.5 fL (80.0-100.0); Monocytes # (auto) 0.8 uL; Monocytes % (auto) 4.7 % (0.0-12.0); Red Blood Cells 4.01 10^6/uL (4.5-5.90); Red Cell Distribution Width 14.4 % (11.8-14.3)
[2018-01-15 08:00] VITALS: BP 111/91
[2018-01-15 08:06] LABS: Platelet Count (auto) 1189 10^3/uL (140-450)
[2018-01-15 08:13] LABS: Urine Bacteria FEW /hpf (None Seen); Urine Blood Negative /uL (Negative); Urine Specific Gravity 1.029 (1.001-1.035); Urine WBC 1 /hpf (0 - 3)
[2018-01-15 09:00] VITALS: BP 111/91
[2018-01-15] MEDS: LEVOFLOXACIN 500MG 100 ML IV SCH (09:00)
[2018-01-15] MEDS: CYCLOBENZAPRINE HCL 10 MG TAB PO PRN ×3 (09:00→17:37)
[2018-01-15] MEDS: PANTOPRAZOLE 40 MG TAB PO SCH ×2 (09:00→21:02)
[2018-01-15] MEDS: ENOXAPARIN SOD 40 MG/0.4 ML SYRINGE SC SCH (09:00)
[2018-01-15 09:43] LABS: Albumin 3.7 g/dL (3.4-5.0); Bilirubin, Direct 0.2 mg/dL (0-0.2); Bilirubin, Total 0.6 mg/dL (0.2-1.0); Total Protein 7.6 g/dL (6.4-8.2)
[2018-01-15 13:00] VITALS: BP 117/62
[2018-01-15 17:00] VITALS: BP 116/78
[2018-01-15] MEDS: TEMAZEPAM 15 MG CAP PO PRN (21:06)
[2018-01-15 22:00] VITALS: BP 138/83
[2018-01-16] MEDS: CYCLOBENZAPRINE HCL 10 MG TAB PO PRN ×3 (02:39→21:09)
[2018-01-16] MEDS: SODIUM CHLORIDE 0.9% 1,000 ML IV SCH (02:39)
[2018-01-16] MEDS: metroNIDAZOLE 500MG/100ML 100 ML IV SCH (05:18)
[2018-01-16 05:46] LABS: Basophils # (auto) 0.1 uL; Basophils % (auto) 0.3 % (0.0-2.0); Eosinophils # (auto) 0 uL; Eosinophils % (auto) 0.1 % (0.0-7.0); Mean Corpuscular Hemoglobin 32.9 pg (28.0-32.0); Monocytes # (auto) 1.1 uL; Nucleated Red Blood Cells % 0.1 %
[2018-01-16 05:49] LABS: Hematocrit 34.4 % (41.0-53.0); Lymphocytes # (auto) 1.2 uL; Lymphocytes % (auto) 7.5 % (10.0-50.0); Mean Corpuscular Hgb Conc. 34.8 g/dL (32.0-36.0); Mean Corpuscular Volume 94.3 fL (80.0-100.0); Neutrophils # (auto) 13.3 uL; Neutrophils % (auto) 85.1 % (37.0-80.0); Red Blood Cells 3.65 10^6/uL (4.5-5.90); Red Cell Distribution Width 14.3 % (11.8-14.3); White Blood Cell 15.7 10^3/uL (4.4-10.8)
[2018-01-16 06:02] LABS: Calcium 8.5 mg/dL (8.5-10.1); Potassium 3.9 mmol/L (3.5-5.1)
[2018-01-16 06:03] LABS: Platelet Count (auto) 921 10^3/uL (140-450)
[2018-01-16 06:04] LABS: BUN/Creatinine Ratio 39.3
[2018-01-16 06:09] VITALS: BP 124/79
[2018-01-16] MEDS: PANTOPRAZOLE 40 MG TAB PO SCH ×2 (07:58→21:09)
[2018-01-16 08:00] VITALS: BP 124/88
[2018-01-16 09:00] VITALS: BP 124/88
[2018-01-16] MEDS: ENOXAPARIN SOD 40 MG/0.4 ML SYRINGE SC SCH (10:56)
[2018-01-16] MEDS: SODIUM BICARBONATE 650 MG TAB PO SCH ×2 (10:56→21:09)
[2018-01-16 13:00] VITALS: BP 110/86
[2018-01-16 17:00] VITALS: BP 115/74
[2018-01-16] MEDS: TEMAZEPAM 15 MG CAP PO PRN (21:09)
[2018-01-16 22:00] VITALS: BP 105/43
[2018-01-17 01:25] VITALS: BP 105/43
[2018-01-17 05:22] VITALS: BP 118/80
[2018-01-17 06:48] LABS: Basophils # (auto) 0 uL; Basophils % (auto) 0.3 % (0.0-2.0); Eosinophils # (auto) 0 uL; Hemoglobin 12.2 g/dL (13.5-17.5)
[2018-01-17 06:52] LABS: Eosinophils % (auto) 0.2 % (0.0-7.0); Hematocrit 35.4 % (41.0-53.0); Lymphocytes # (auto) 1.4 uL; Lymphocytes % (auto) 9.4 % (10.0-50.0); Mean Corpuscular Hgb Conc. 34.6 g/dL (32.0-36.0); Mean Corpuscular Volume 92.6 fL (80.0-100.0); Monocytes # (auto) 1.1 uL; Monocytes % (auto) 7.5 % (0.0-12.0); Neutrophils # (auto) 12.2 uL; Neutrophils % (auto) 82.6 % (37.0-80.0); Nucleated Red Blood Cells % 0.1 %; Red Blood Cells 3.82 10^6/uL (4.5-5.90); White Blood Cell 14.8 10^3/uL (4.4-10.8)
[2018-01-17 06:59] LABS: Platelet Count (auto) 876 10^3/uL (140-450)
[2018-01-17 07:02] LABS: BUN/Creatinine Ratio 41.1; Calcium 8.7 mg/dL (8.5-10.1)
[2018-01-17 08:18] VITALS: BP 125/67
[2018-01-17] MEDS ORDERED: SODIUM CHLORIDE 0.9% 1,000 ML IV ONE (08:30)
[2018-01-17] MEDS: PANTOPRAZOLE 40 MG TAB PO SCH ×2 (10:07→21:31)
[2018-01-17] MEDS: ENOXAPARIN SOD 40 MG/0.4 ML SYRINGE SC SCH (10:07)
[2018-01-17] MEDS: SODIUM BICARBONATE 650 MG TAB PO SCH ×2 (10:07→21:31)
[2018-01-17 11:46] VITALS: BP 117/77
[2018-01-17 16:50] VITALS: BP 116/90
[2018-01-17] MEDS: CYCLOBENZAPRINE HCL 10 MG TAB PO PRN (21:31)
[2018-01-17] MEDS: TEMAZEPAM 15 MG CAP PO PRN (21:31)
[2018-01-17 21:56] VITALS: BP 119/69
[2018-01-18 04:39] VITALS: BP 112/72
[2018-01-18 06:56] LABS: Eosinophils # (auto) 0.1 uL; Hemoglobin 11.3 g/dL (13.5-17.5); Mean Corpuscular Hgb Conc. 34.7 g/dL (32.0-36.0); Nucleated Red Blood Cells % 0.2 %
[2018-01-18 06:58] LABS: Basophils # (auto) 0 uL; Basophils % (auto) 0.4 % (0.0-2.0); Eosinophils % (auto) 0.8 % (0.0-7.0); Hematocrit 32.6 % (41.0-53.0); Lymphocytes # (auto) 1.8 uL; Lymphocytes % (auto) 20.6 % (10.0-50.0); Mean Corpuscular Hemoglobin 32.6 pg (28.0-32.0); Mean Corpuscular Volume 93.8 fL (80.0-100.0); Monocytes # (auto) 0.9 uL; Monocytes % (auto) 10.5 % (0.0-12.0); Neutrophils % (auto) 67.7 % (37.0-80.0); Platelet Count (auto) 730 10^3/uL (140-450); Red Blood Cells 3.47 10^6/uL (4.5-5.90); Red Cell Distribution Width 14.1 % (11.8-14.3); White Blood Cell 8.8 10^3/uL (4.4-10.8)
[2018-01-18 07:48] LABS: BUN/Creatinine Ratio 26.8; Calcium 8.2 mg/dL (8.5-10.1); Potassium 3.5 mmol/L (3.5-5.1)
[2018-01-18 08:48] VITALS: BP 119/79
[2018-01-18] MEDS: ENOXAPARIN SOD 40 MG/0.4 ML SYRINGE SC SCH (10:00)
[2018-01-18] MEDS: PANTOPRAZOLE 40 MG TAB PO SCH (10:24)
[2018-01-18] MEDS: SODIUM BICARBONATE 650 MG TAB PO SCH (10:24)
[2018-01-18 17:00] VITALS: BP 121/77
== END 2018-01-18 19:31 | disposition home or self-care (01) | DRG 723 ==
LOC: ER 11:27 → TELE 11:28 → TELE-WESTW 21:02
PROVIDERS: ADMIT Internal Medicine; ATTEND Internal Medicine
DX: B34.9 Viral infection, unspecified (principal); K85.90 Acute pancreatitis without necrosis or infection, unspecified; R65.10 Systemic inflammatory response syndrome (SIRS) of non-infectious origin without acute organ dysfunction; E87.1 Hypo-osmolality and hyponatremia; I10 Essential (primary) hypertension; D47.3 Essential (hemorrhagic) thrombocythemia; E78.5 Hyperlipidemia, unspecified; J44.9 Chronic obstructive pulmonary disease, unspecified; D72.829 Elevated white blood cell count, unspecified; E86.0 Dehydration; M19.90 Unspecified osteoarthritis, unspecified site; D50.0 Iron deficiency anemia secondary to blood loss (chronic); Z93.2 Ileostomy status; Z93.3 Colostomy status; Z88.2 Allergy status to sulfonamides
CPT/HCPCS: 36415; 71045; 74176; 80048; 80053; 80076; 81001; 82150; 83690; 85025; 87040; 87081; 87086; 87493; 96361; 96365; J1956; J3490

== ENCOUNTER 2018-12-30 08:18 | Day surgery (SDC) | payer MEDICAID ==
[2018-12-27 08:45] LABS: Basophils # (auto) 0.1 uL; Basophils % (auto) 1.8 % (0.0-2.0); Eosinophils # (auto) 0.1 uL; Eosinophils % (auto) 2.8 % (0.0-7.0); Hematocrit 43.9 % (41.0-53.0); Lymphocytes # (auto) 1.4 uL; Lymphocytes % (auto) 27.2 % (10.0-50.0); Mean Corpuscular Hemoglobin 31.9 pg (28.0-32.0); Mean Corpuscular Hgb Conc. 34.1 g/dL (32.0-36.0); Mean Corpuscular Volume 93.5 fL (80.0-100.0); Monocytes # (auto) 0.4 uL; Neutrophils % (auto) 60.2 % (37.0-80.0); Nucleated Red Blood Cells % 0.1 %; Platelet Count (auto) 413 10^3/uL (140-450); Red Cell Distribution Width 13.8 % (11.8-14.3)
[2018-12-27 09:01] LABS: INR 0.94 (0.9-1.15); Partial Thromboplastin Time 26.3 sec (23.78-33.04); Prothrombin Time 10.1 sec (9.27-12.13)
[~2018-12-30] VITALS: Ht 180.3 cm; Wt 74.8 kg
[~2018-12-30 08:18] MED LIST changes: +LISI10TA6 PO; -METH5TAB2 PO; -NALO1TAB2 PO
[2018-12-30] MEDS ORDERED: diphenhdrAMINE HCL 50 MG/1 ML VL ONE (09:17)
[2018-12-30] MEDS ORDERED: SODIUM CHLORIDE LOCK 10 ML ONE (09:17)
[2018-12-30] MEDS: fentaNYL CITRATE 100 MCG/2 ML VL ONE ×3 (10:19→10:29)
[2018-12-30] MEDS: MIDAZOLAM HCL 5 MG/ML-1ML VIAL ONE ×4 (10:19→10:33)
[2018-12-30] MEDS ORDERED: MIDAZOLAM HCL 5 MG/ML-1ML VIAL ONE (10:32)
[2018-12-30] MEDS ORDERED: fentaNYL CITRATE 100 MCG/2 ML VL ONE (10:32)
[2018-12-30 11:15] VITALS: BP 125/89
== END 2018-12-30 11:17 | disposition home or self-care (01) ==
LOC: SUR 08:18
PROVIDERS: ATTEND Internal Medicine Gastroenterology
DX: K52.89 Other specified noninfective gastroenteritis and colitis (principal); K63.2 Fistula of intestine; K43.5 Parastomal hernia without obstruction or gangrene; K94.09 Other complications of colostomy; M19.90 Unspecified osteoarthritis, unspecified site; J44.9 Chronic obstructive pulmonary disease, unspecified; F41.9 Anxiety disorder, unspecified; F17.210 Nicotine dependence, cigarettes, uncomplicated; M79.89 Other specified soft tissue disorders; Z88.1 Allergy status to other antibiotic agents; Z79.899 Other long term (current) drug therapy
CPT/HCPCS: 36415; 44388; 85025; 85610; 85730; J2250; J3010; J7030; 99152

== ENCOUNTER 2024-12-10 20:57 | Inpatient (IN) | payer MEDICARE, MEDICAID ==
[~2024-12-10] VITALS: Ht 185.4 cm; Wt 68.1 kg
[~2024-12-10 20:57] MED LIST changes: +IBUP-1456 PO; -IBUP800T24 PO; +LISI10TA34 PO; -LISI10TA6 PO; -SIMV-13 PO; +SIMV40TA18 PO
[2024-12-10 21:15] VITALS: O2SAT 95
[2024-12-10] MEDS: SODIUM CHLORIDE 0.9% 1,000 ML IV ONE (22:09)
[2024-12-10 22:34] LABS: Amphetamine Screen, Urine Pos (NEGATIVE); Barbiturate Scree,Urine Neg (NEGATIVE); Benzodiazephine Screen, Urine Neg (NEGATIVE); Cannabinoid Screen, Urine Neg (NEGATIVE); Cocaine Screen, Urine Neg (NEGATIVE); Opiate Scree,Urine Pos (NEGATIVE); Phencyclidine Screen, Urine Neg (NEGATIVE)
[2024-12-10 22:37] LABS: COVID19 ANTIGEN SOFIA FIA NEGATIVE (NEGATIVE)
[2024-12-10 22:38] LABS: Basophils # (auto) 0.1 10 ^3/uL (0-0.2); Basophils % (auto) 0.7 % (0.0-2.0); Eosinophils # (auto) 0 10 ^3/uL (0-0.8); Hemoglobin 15.2 g/dL (13.5-17.5); Lymphocytes # (auto) 0.2 10 ^3/uL (0.4-5.4); Lymphocytes % (auto) 2.1 % (10.0-50.0); Mean Corpuscular Hemoglobin 33.1 pg (28.0-32.0); Mean Corpuscular Hgb Conc. 35.4 g/dL (32.0-36.0); Mean Corpuscular Volume 93.4 fL (80.0-100.0); Monocytes # (auto) 0.7 10 ^3/uL (0-1.3); Monocytes % (auto) 6.3 % (0.0-12.0); Neutrophils # (auto) 10.2 10 ^3/uL (1.6-8.6); Neutrophils % (auto) 90.9 % (37.0-80.0); Platelet Count (auto) 264 10^3/uL (140-450); Red Cell Distribution Width 14.1 % (11.8-14.3); White Blood Cell 11.3 10^3/uL (4.4-10.8)
[2024-12-10 22:39] LABS: Rapid Influenza B Negative (Negative)
[2024-12-10 22:40] LABS: Rapid Influenza A Positive (Negative)
[2024-12-10 22:53] LABS: Alanine Aminotransferase 35 U/L (7-40); Albumin 3.8 g/dL (3.2-4.8); Alkaline Phosphatase 65 U/L (46-116); Anion Gap 12 (5-15); Aspartate Aminotransferase 21 U/L (13-40); BUN/Creatinine Ratio 18.6 (10.0-20.0); Bilirubin, Total 0.6 mg/dL (0.2-1.0); Calcium 8.7 mg/dL (8.7-10.4); Creatine Kinase IFCC 43 U/L (46-171); Magnesium 2.4 mg/dL (1.6-2.6); Potassium 3.6 mmol/L (3.5-5.1); Total Protein 6.3 g/dL (5.7-8.2)
--- NOTE | 2024-12-10 22:53 | DVH ---
CHEST RADIOGRAPH Indication: Generalized weakness Technique: Single frontal view of the chest was obtained Comparison: None FINDINGS: Lines and Tubes: None Lungs: Bibasilar airspace disease is noted. Pleura: No effusion. No pneumothorax. Cardiomediastinal contours: Unremarkable Bones: No acute osseous abnormality. IMPRESSION: 1. Bibasilar airspace disease.
[2024-12-10 22:59] LABS: Blood Alcohol < 3.0 mg/dL (<10); Blood Urea Nitrogen 89 mg/dL (9-23); Carbon Dioxide 19 mmol/L (20-31); Chloride 96 mmol/L (98-107); Glucose 112 mg/dL (74-106); Sodium 127 mmol/L (136-145)
--- NOTE | 2024-12-10 23:00 | DVH ---
EXAM: CT HEAD WITHOUT CONTRAST INDICATION: Generalized weakness, altered mental status TECHNIQUE: CT of the head without intravenous contrast. Radiation Dose Information: CT Dose: CTDI volume is 59.86 mGy. Dose-length product is 1058.04 mGy*cm The dose indicators for CT are the volume Computed Tomography (CT) Dose Index (CTDIvol) and the Dose Length Product (DLP), and are measured in units of mGy and mGy-cm, respectively. These indicators are not patient dose, but values generated from the CT scanner acquisition factors. The report includes radiation exposure data for exposures received during this examination. COMPARISON: None FINDINGS: There is no evidence of acute intracranial hemorrhage, extra-axial collection, mass effect, midline s hift, herniation or hydrocephalus. The ventricles, sulci and cisterns are age appropriate. The soriano-white differentiation is intact. Patchy periventricular and subcortical white matter hypoattenuation is nonspecific but may be related to small vessel ischemic disease. The visualized paranasal sinuses and mastoid air cells are clear. The surrounding soft tissues and osseous structures are unremarkable. IMPRESSION: 1. No acute intracranial hemorrhage 2. No CT findings of territorial ischemia.
[2024-12-10] MEDS: ALBUTEROL SULF 2.5 MG/0.5ML(0.5%) NEB SOLN NEB ONE (23:12)
[2024-12-10 23:28] LABS: Lipase 19 U/L (12-53)
[2024-12-10 23:37] LABS: Urine Amorphous Crystal FEW /hpf (None Seen); Urine Bacteria FEW /hpf (None Seen); Urine Blood 1+ /uL (Negative); Urine Clarity Turbid (Clear); Urine Color Yellow (Yellow); Urine Hyaline Cast MOD /lpf (0 - 2); Urine Mucus FEW (None Seen); Urine Protein, UAD 2+ (Negative); Urine Specific Gravity 1.019 (1.001-1.035); Urine Squamous Epithelial Cell FEW /hpf (<5); Urine Urobilinogen Normal (Negative); Urine WBC 5 /HPF (0-3); Urine pH 5.5 (5.0-9.0)
[2024-12-11] VITALS (18 sets, daily range): BP systolic 95–128; BP diastolic 46–86; PULSE 48–129; RESP 16–23; TEMP 96.8–99.2; O2SAT 86–100
--- NOTE | 2024-12-11 00:02 | ED.PDOC ---
History of Present Illness HPI Comments 69-year-old male was brought in by ambulance for complaint of generalized weakness, nausea, and vomiting for the past 10 days, today. Per EMS report, patient's family called after patient's symptoms began getting progressively worse, yesterday, to finding him on the floor, today. On scene, patient was noted to have been found multiple times NSTEMI via 12 lead in addition to a blood glucose of 170. Family reported to EMS on patient's colostomy bag he has, currently, being unchanged for the past several days. He has a history of COPD, HTN, HLD, colostomy/ileostomy, anemia, arthritis, and tobacco abuse. Patient has no reported chest pain, shortness of breath, or additional symptoms or modifiers at this time. Chief Complaint: General Weakness Time Seen by MD: 21:20 Primary Care Provider: juliet Reviewed Notes: Nurses Notes, [employer]ing Unit Operator Notes, Medications, Allergies Allergies: Coded Allergies: Sulfa Antibiotics (Verified Allergy, Severe, RASH, 12/27/18) Home Meds Reported Medications Lisinopril (Lisinopril) 10 Mg Tab, 10 MG PO DAILY for 30 Days, MG 12/27/18 Ibuprofen (Ibuprofen) 800 Mg Tab, 800 MG PO BIDP PRN for MODERATE PAIN, MG 12/27/18 Simvastatin (Simvastatin) 40 Mg Tab, 40 MG PO DAILY for 30 Days 12/31/17 Hydrocodone-Acetaminophen (Hydrocodone Bitartrate/AC 10-325 mg) 1 Tab Tab, 1 TAB PO Q8HP, TAB 12/31/17 Omeprazole (Gnp Omeprazole) 20 Mg Tab, 20 MG PO DAILY, TAB 12/31/17 Temazepam (Temazepam) 30 Mg Cap, 30 MG PO HS, CAP 12/31/17 Information Source: Patient, Emergency Med Personnel Mode of Arrival: Ambulatory Severity: Moderate Timing: Days Duration: Since onset Prehospital treatment: 12 Lead EKG, Accucheck, Customer Solutions Supervisor Review of Systems: REVIEW OF SYSTEMS: No fever, no chills, or fatigue HEENT: No sore throat, no earache, no congestion, no neck pain. Cardiac: No chest pain. No palpitations. Lungs: No shortness of breath, no cough. GI: Nausea and vomiting, no diarrhea, no constipation, no abdominal pain : No dysuria, frequency, or urgency. No hematuria. Musculoskeletal: No joint pain , no joint swelling, no extremity edema. Skin: No rash, no itching. Neuro: Generalized weakness. No headache, no dizziness Vital Signs Vital Signs Date Time Temp Pulse Resp B/P (MAP) Pulse Ox O2 Delivery O2 Flow Rate FiO2 12/11/24 00:06 129 12/10/24 23:13 20 87 Room Air* 0 21 12/10/24 22:41 128/75 (92) 12/10/24 21:28 98.0 98.0 Physical Exam General: Patient is lethargic, thin, appears malnourished, No acute distress. Very thin, poorly groomed, Skin: Skin in warm, dry and intact. Appropriate color for ethnicity.poor skin turgor HEENT: The head is normocephalic and atraumatic. Conjunctivae are clear without exudates or hemorrhage. Sclera is non-icteric. EOM are intact. No signs of nystagmus. Eyelids are normal in appearance without swelling or lesions. Oral mucosa is pink and moist. dry oral mucus membranes Neck: The neck is supple with normal range of motion. No JVD. Cardiac: Heart rate and rhythm are normal. No murmurs, gallops, or rubs are auscultated. Respiratory: No signs of respiratory distress. Lung sounds are clear in all lobes bilaterally without rales, ronchi, or wheezes. Abdominal: Colostomy bag in RLQ, leaking black color stool. Abdomen is otherwise soft, non-tender without distention. Bowel sounds are present and normoactive in all four quadrants. Extremities: Upper and lower extremities are atraumatic in appearance without deformity or edema. Neurological: The patient is disoriented, he is able to follow commands Psychiatric: Appropriate mood and affect. Good judgement and insight. No visual or auditory hallucinations. Past Medical History PAST MEDICAL HISTORY: Anemia, Arthritis, COPD, High Lipids, HTN Surgical History (Other): olostomy/ileostomy Family History Family History: Unknown Social History Smoker: Non-Smoker, Quit Less Than 1 Year Alcohol: Denies ETOH Use Drugs: Denies Drug Use Lives In: Home Was a procedure done? Was a procedure done?: No EKG EKG #1: Pulse Rate (adult): 132 [place]: Normal Cardiac Rhythm: Afib Block: None Hypertrophy: None ST: Normal EKG #2: Pulse Rate (adult): 137 [place]: Normal Cardiac Rhythm: ST Block: None Hypertrophy: None ST: Normal Differential Dx Considerations may include: Viral syndrome, electrolyte imbalance, encephalopathy, UTI, URI, gastritis, gastroenteritis, [place], CVA, acute coronary syndrome, GI bleed among others X-Ray, Labs, Meds, VS Vital Signs Date Time Temp Pulse Resp B/P (MAP) Pulse Ox O2 Delivery O2 Flow Rate FiO2 12/11/24 00:06 129 12/11/24 00:02 137 12/11/24 00:00 131 12/10/24 23:13 20 87 Room Air* 0 21 12/10/24 22:41 124 22 128/75 (92) 97 12/10/24 22:14 137 12/10/24 21:28 98.0 128 18 97/67 (77) 93 98.0 12/10/24 21:15 95 Simple Mask* 10 99 12/10/24 21:09 97.8 110 20 109/68 (82) 96 12/10/24 21:04 132 Lab Test 12/10/24 22:16 12/10/24 22:10 12/10/24 21:30 Range/Units White Blood Count 11.3 H 4.4-10.8 10^3/uL Red Blood Count 4.60 4.5-5.90 10^6/uL Hemoglobin 15.2 13.5-17.5 g/dL Hematocrit 43.0 41.0-53.0 % Mean Corpuscular Volume 93.4 80.0-100.0 fL Mean Corpuscular Hemoglobin 33.1 H 28.0-32.0 pg Mean Corpuscular Hemoglobin Concent 35.4 32.0-36.0 g/dL Red Cell Distribution Width 14.1 11.8-14.3 % Platelet Count 264 140-450 10^3/uL Mean Platelet Volume 8.9 6.9-10.8 fL Neutrophils (%) (Auto) 90.9 H 37.0-80.0 % Lymphocytes (%) (Auto) 2.1 L 10.0-50.0 % Monocytes (%) (Auto) 6.3 0.0-12.0 % Eosinophils (%) (Auto) 0.0 0.0-7.0 % Basophils (%) (Auto) 0.7 0.0-2.0 % Neutrophils # (Auto) 10.2 H 1.6-8.6 10 ^3/uL Lymphocytes # (Auto) 0.2 L 0.4-5.4 10 ^3/uL Monocytes # (Auto) 0.7 0-1.3 10 ^3/uL Eosinophils # (Auto) 0 0-0.8 10 ^3/uL Basophils # (Auto) 0.1 0-0.2 10 ^3/uL Nucleated Red Blood Cells 0.0 % Sodium Level 127 L 136-145 mmol/L Potassium Level 3.6 3.5-5.1 mmol/L Chloride Level 96 L 98-107 mmol/L Carbon Dioxide Level 19 L 20-31 mmol/L Anion Gap 12 5-15 Blood Urea Nitrogen 89 *H 9-23 mg/dL Creatinine 4.79 H 0.700-1.30 mg/dL Glomerular Filtration Rate Calc 12 >90 mL/min BUN/Creatinine Ratio 18.6 10.0-20.0 Serum Glucose 112 H 74-106 mg/dL Lactic Acid Level 2.0 0.4-2.0 mmol/L Calcium Level 8.7 8.7-10.4 mg/dL Magnesium Level 2.4 1.6-2.6 mg/dL Total Bilirubin 0.6 0.2-1.0 mg/dL Aspartate Amino Transferase (AST) 21 13-40 U/L Alanine Aminotransferase (ALT) 35 7-40 U/L Alkaline Phosphatase 65 46-116 U/L Creatine Kinase 43 L 46-171 U/L Troponin I High Sensitivity 16 </=54 ng/L Total Protein 6.3 5.7-8.2 g/dL Albumin 3.8 3.2-4.8 g/dL Lipase 19 12-53 U/L Plasma/Serum Blood Alcohol < 3.0 <10 mg/dL Influenza Type A Antigen Positive Negative Influenza Type B Antigen Negative Negative SARS-CoV-2 Antigen (Rapid) Negative NEGATIVE Urine Color Yellow Yellow Urine Clarity Turbid H Clear Urine pH 5.5 5.0-9.0 Urine Specific [place] 1.019 1.001-1.035 Urine Protein 2+ H Negative Urine Ketones Negative Negative Urine Blood 1+ H Negative /uL Urine Nitrite Negative Negative Urine Bilirubin Negative Negative Urine Urobilinogen Normal Negative mg/dL Urine Leukocyte Esterase Negative Negative /uL Urine RBC 7 0 - 3 /hpf Urine Microscopic WBC 5 H 0-3 /HPF Urine Squamous Epithelial Cells Few <5 /hpf Urine Amorphous Crystals Few None Seen /hpf Urine Bacteria Few H None Seen /hpf Urine Hyaline Casts Mod 0 - 2 /lpf Urine Mucus Few None Seen Urine Glucose Trace Normal mg/dL Stool Occult Blood Positive Negative Stool Occult Blood Sample #3 Negative Urine Opiates Screen Pos NEGATIVE Urine Fentanyl Screen Neg NEGATIVE Urine Barbiturates Screen Neg NEGATIVE Urine Phencyclidine Screen Neg NEGATIVE Urine Amphetamines Screen Pos NEGATIVE Urine Benzodiazepines Screen Neg NEGATIVE Urine Cocaine Screen Neg NEGATIVE Urine Cannabinoids Screen Neg NEGATIVE Current Medications Medications (Trade) Dose Ordered Sig/Tanner Route Start Time Stop Time Status Last Admin Sodium Chloride 1,000 ml @ 1,000 mls/hr Q1H ONCE IV 12/10/24 22:15 12/10/24 23:14 DC 12/10/24 22:09 Albuterol (Ventolin Medneb) 2.5 mg ONCE ONCE NEB 12/10/24 23:15 12/10/24 23:16 DC 12/10/24 23:12 Sodium Chloride 1,000 ml @ 1,000 mls/hr Q1H ONCE IV 12/11/24 00:15 12/11/24 01:14 DC 12/11/24 01:55 Time of 1ST Reevaluation: 21:50 Reevaluation 1ST: Unchanged Patient Education/Counseling: Diagnosis, Treatment, Other (Need for admission) Family Education/Counseling: No Family Present Departure 1 Departure Time of Disposition: 03:57 Impression: Primary Impression: Sinus tachycardia Additional Impressions: Suspected sepsis GI bleed Influenza A Disposition: 09 ADMITTED INPATIENT Condition: Stable Comments 69-year-old male who presented to the emergency department with generalized weak ness for several days, altered mental status. Workup revealed acute kidney injury, influenza infection. Blood cultures stool noted from ostomy with stool occult positive. Patient felt to be hyponatremic. Initial IV fluid bolus administered in the ED for sinus tachycardia and suspected dehydration. Patient admitted for further treatment, evaluation and monitoring. Extensive evaluation was performed in attempt to identify or rule out: (See differential diagnosis section) The following tests were ordered, and results were reviewed by me: (See diagn ostic results section) The following test were independently interpreted by me: N/A I reviewed and agreed with the following test results read by other providers: N/A I reviewed the following notes from the pt's past medical encounters: January 2018 encounter for intractable vomiting Additional information was gathered from interviewing the following independent historians: EMS personnel Discussion of management or test interpretation with external physician/other qualified health respiratory care specialist: N/A Addressed an acute or chronic illness that poses a threat to life or bodily function: Severe hypernatremia, acute renal failure Decision regarding hospitalization or escalation of hospital level of care: Risk and benefits of admission for further treatment of patient's condition was considered. Due to patient's current clinical condition, high risk of decline and poor outcome if discharged and need for further inpatient management and monitoring, patient will be admitted to the hospital. Drug therapy requiring intensive monitoring for toxicity: N/A Parenteral controlled substances: N/A Decision regarding elective major surgery with identified patient or procedure risk factors: N/A Decision regarding emergency major surgery: N/A Decision not to resuscitate or to de-escalate care because of poor prognosis: N/A Diagnosis or treatment significantly limited by social determinants of health: N/A Critical Care Note Critical Care Time?: No Stability Stability form required: No Heart Score Heart Score: Heart Score Response (Comments) Value History Moderate Suspicious 1 EKG Normal 0 Age >65 2 Risk Factors >3 or Hx ASHD 2 Troponin Normal limit 0 Total 5 I personally scribed for KRUPA HANSON MD ([email or web address]) on 12/11/24 at 00:02. Electronically submitted by Mario Asif ([email or web address]). KRUPA HANSON MD Dec 11, 2024 00:02
--- NOTE | 2024-12-11 00:08 | DVH ---
Exam: CT CT AB PEL WO CON-NO ORAL OR IV History: Generalized weakness, abdominal pain, possible GI bleed from Comparison Study: None Technique: Multidetector spiral CT of the abdomen was performed from lung bases to pubic symphysis. Imaging was performed without IV contrast. Axial, coronal and sagittal multiplanar reformats were ob tained from the axial data set by the technologist. Radiation Dose : 1. Abdomen/Pelvis: CTDIvol mGy, DLP mGy*cm. Findings: Evaluation of solid organs is limited due to lack of intravenous contrast use. Lung Bases: Infiltrates in bilateral lower lobes greater on the left side consistent with pneumonia. No pleural or pericardial effusion. Liver: Unremarkable. Gallbladder and Biliary Tree: Evidence of small calcified gallstones in the gallbladder. Gallbladder appears mildly distended but otherwise unremarkable. No evidence of biliary ductal dilatation. Spleen: Unremarkable Pancreas: Not adequately visualized. Adrenal Glands: Unremarkable Kidneys: Unremarkable. No evidence of renal calculus or hydroureteronephrosis. Bladder: Non distended. Owens catheter present. Bowel: Stomach appears grossly unremarkable. No definite large or small bowel abnormality identified. Ascites: Absent Lymphadenopathy: No evidence of lymphadenopathy. Abdominal Wall and Mesentery: Unremarkable. Surgical clips noted in LUQ. Vasculature: Calcific atherosclerotic changes in abdominal aorta and iliac arteries without evidence of aneurysmal dilatation. Pelvic Organs: Unremarkable. Musculoskeletal: No bony lesions or fracture. Mild lower lumbar spondylosis. IMPRESSION: No acute abdominal or pelvic findings. No evidence of hemorrhage. Infiltrates in bilateral lower lobes greater on the left side consistent with pneumonia. Cholelithiasis. Radiation optimization: All CT scans at this facility use at least one of these dose optimization ariel hniques: automated exposure control mA and/or kV adjustment per patient size (includes targeted exam s where dose is matched to clinical indication) or iterative reconstruction.
[2024-12-11] MEDS ORDERED: SODIUM CHLORIDE 0.9% 1,000 ML IV ONE (00:15)
[2024-12-11] MEDS ORDERED: ONDANSETRON HCL 4 MG/2 ML VIAL IV PRN (00:30)
[2024-12-11] MEDS ORDERED: NITROGLYCERIN 0.4 MG SL TAB SL PRN (00:30)
[2024-12-11] MEDS ORDERED: ALBUTEROL SULF 2.5 MG/0.5ML(0.5%) NEB SOLN NEB PRN (00:30)
[2024-12-11] MEDS: SODIUM CHLORIDE 0.9% 1,000 ML IV ONE ×2 (01:55)
[2024-12-11] MEDS: cefTRIAXone 1GM/50ML D5W 50 ML IV ONE ×2 (01:55→02:05)
--- NOTE | 2024-12-11 03:36 | ECG ---
[facility] Test Date: 2024-12-11 Test Time: 00:06:19 Pat Name: TAMANNA DURAN Department: ER Room: 0233T Gender: M Adjunct History Instructor: CMR : 1955 Requested By: KRUPA HANSON Order Number: [id number] Reading MD: Nima Tyson Measurements Intervals [place] Rate: 129 P: 80 HI: 179 QRS: -55 QRSD: 113 T: 85 QT: 306 QTc: 449 Interpretive Statements Sinus tachycardia Multiform ventricular premature complexes LAE, consider biatrial enlargement LAD, consider left anterior fascicular block ST elevation suggests acute pericarditis Electronically Signed On 12-15-2024 23:01:01 PDT by Nima Tyson Please click the below link to view image of tracing.
--- NOTE | 2024-12-11 03:36 | ECG ---
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
[2024-12-11] MEDS: ACETAMINOPHEN 325 MG TAB PO PRN (03:53)
--- NOTE | 2024-12-11 04:33 | DVHHP2 ---
History of Present Illness Reason for Visit: Generalized weakness History of Present Illness 69-year-old male presents evaluation of generalized weakness. EMS was called by family to bring patient for evaluation due to generalized weakness and altered mental status. Symptoms have been progressively worsening over the past 10 days. No complaints of chest pain or palpitations there has been episodes of nausea with emesis. No further history could be obtained at the moment. Past Medical History COPD, hypertension, dyslipidemia, arthritis Past Surgical History Colostomy Family History Noncontributory Smoke: No ALCOHOL: none Drugs: None Lives: with Family Review of Systems Review of Systems Review of systems are currently negative otherwise addressed in HPI. Allergies: Coded Allergies: Sulfa Antibiotics (Verified Allergy, Severe, RASH, 12/27/18) Medications Current Medications Medications Dose Ordered Sig/Tanner Route Start Time Stop Time Status Last Admin Dose Admin Atorvastatin Calcium 20 mg HS PO 12/11/24 22:00 Albuterol 2.5 mg Q6HPRN PRN NEB 12/11/24 00:30 Oseltamivir Phosphate 30 mg Q24H PO 12/11/24 10:00 12/16/24 09:59 Ceftriaxone Sodium 50 ml @ 100 mls/hr Q24H IV 12/12/24 01:00 Azithromycin 250 ml @ 125 mls/hr DAILY IV 12/11/24 10:00 Ondansetron HCl 4 mg Q4HP PRN IV 12/11/24 00:30 UNV Acetaminophen 650 mg Q6HP PRN PO 12/11/24 00:30 12/11/24 03:53 650 MG Nitroglycerin 0.4 mg Q5MINP PRN SL 12/11/24 00:30 Morphine Sulfate 2 mg Q30M PRN IV 12/11/24 00:30 Exam Vital Signs Vital Signs Date Time Temp Pulse Resp B/P (MAP) Pulse Ox O2 Delivery O2 Flow Rate FiO2 12/11/24 04:00 130 12/11/24 02:27 28 124/79 (94) 91 12/11/24 00:34 98.0 10.0 50 98.0 12/10/24 23:13 Room Air* Exam Gen: 69-year-old male in mild distress Skin: Warm, dry, normal color and texture, no rash. HEENT: Normocephalic atraumatic, mucous membranes moist and pink. Neck: Cervical and supraclavicular nodes normal without enlargement, trachea is midline, thyroid gland is normal without masses. Pulmonary: Clear to auscultation and percussion bilaterally. Cardiac: Regular rate and rhythm. No murmur Abdomen: Soft, nontender, nondistended, bowel sounds present all 4 quadrants, no guarding, no rigidity, no organomegaly. Extremities: No cyanosis, clubbing, no edema Neuro: Lethargic, no focal deficits Labs/Xrays ORDERING PHYSICIAN: KRUPA HANSON MD PROCEDURE(s): ABPL - CT AB PEL WO CON-NO ORAL OR IV REASON: Generalized weakness, abdominal pain, possible GI bleed from ORDER NUMBER(s): [id number], ACCESSION NUMBER(s): [id number] Exam: CT CT AB PEL WO CON-NO ORAL OR IV History: Generalized weakness, abdominal pain, possible GI bleed from Comparison Study: None Technique: Multidetector spiral CT of the abdomen was performed from lung bases to pubic symphysis. Imaging was performed without IV contrast. Axial, coronal and sagittal multiplanar reformats were obtained from the axial data set by the technologist. Radiation Dose : 1. Abdomen/Pelvis: CTDIvol mGy, DLP mGy*cm. Findings: Evaluation of solid organs is limited due to lack of intravenous contrast use. Lung Bases: Infiltrates in bilateral lower lobes greater on the left side consistent with pneumonia. No pleural or pericardial effusion. Liver: Unremarkable. Gallbladder and Biliary Tree: Evidence of small calcified gallstones in the gallbladder. Gallbladder appears mildly distended but otherwise unremarkable. No evidence of biliary ductal dilatation. Spleen: Unremarkable Pancreas: Not adequately visualized. Adrenal Glands: Unremarkable Kidneys: Unremarkable. No evidence of renal calculus or hydroureteronephrosis. Bladder: Non distended. Owens catheter present. Bowel: Stomach appears grossly unremarkable. No definite large or small bowel abnormality identified. Ascites: Absent Lymphadenopathy: No evidence of lymphadenopathy. Abdominal Wall and Mesentery: Unremarkable. Surgical clips noted in LUQ. Vasculature: Calcific atherosclerotic changes in abdominal aorta and iliac arteries without evidence of aneurysmal dilatation. Pelvic Organs: Unremarkable. Musculoskeletal: No bony lesions or fracture. Mild lower lumbar spondylosis. IMPRESSION: No acute abdominal or pelvic findings. No evidence of hemorrhage. Infiltrates in bilateral lower lobes greater on the left side consistent with pneumonia. Cholelithiasis. Radiation optimization: All CT scans at this facility use at least one of these dose optimization techniques: automated exposure control mA and/or kV adjustment per patient size (includes targeted exams where dose is matched to clinical indication) or iterative reconstruction. ATED BY: ADAM DUCKWORTH MD DICTATED DATE/TIME: 12/11/24 0006 ORDERING PHYSICIAN: KRUPA HANSON MD PROCEDURE(s): CXR1 - CHEST XRAY 1 VIEW REASON: Generalized weakness ORDER NUMBER(s): [id number], ACCESSION NUMBER(s): [id number] CHEST RADIOGRAPH Indication: Generalized weakness Technique: Single frontal view of the chest was obtained Comparison: None FINDINGS: Lines and Tubes: None Lungs: Bibasilar airspace disease is noted. Pleura: No effusion. No pneumothorax. Cardiomediastinal contours: Unremarkable Bones: No acute osseous abnormality. IMPRESSION: 1. Bibasilar airspace disease. RING PHYSICIAN: KRUPA HANSON MD PROCEDURE(s): HWOCT - HEAD WITHOUT CONTRAST REASON: Generalized weakness, altered mental status ORDER NUMBER(s): [id number], ACCESSION NUMBER(s): [id number] EXAM: CT HEAD WITHOUT CONTRAST INDICATION: Generalized weakness, altered mental status TECHNIQUE: CT of the head without intravenous contrast. Radiation Dose Information: CT Dose: CTDI volume is 59.86 mGy. Dose-length product is 1058.04 mGy*cm The dose indicators for CT are the volume Computed Tomography (CT) Dose Index (CTDIvol) and the Dose Length Product (DLP), and are measured in units of mGy and mGy-cm, respectively. These indicators are not patient dose, but values generated from the CT scanner acquisition factors. The report includes radiation exposure data for exposures received during this examination. COMPARISON: None FINDINGS: There is no evidence of acute intracranial hemorrhage, extra-axial collection, mass effect, midline shift, herniation or hydrocephalus. The ventricles, sulci and cisterns are age appropriate. The soriano-white differentiation is intact. Patchy periventricular and subcortical white matter hypoattenuation is nonspecific but may be related to small vessel ischemic disease. The visualized paranasal sinuses and mastoid air cells are clear. The surrounding soft tissues and osseous structures are unremarkable. IMPRESSION: 1. No acute intracranial hemorrhage 2. No CT findings of territorial ischemia. Labs Test 12/10/24 22:16 12/10/24 22:10 12/10/24 21:30 Range/Units White Blood Count 11.3 H 4.4-10.8 10^3/uL Red Blood Count 4.60 4.5-5.90 10^6/uL Hemoglobin 15.2 13.5-17.5 g/dL Hematocrit 43.0 41.0-53.0 % Mean Corpuscular Volume 93.4 80.0-100.0 fL Mean Corpuscular Hemoglobin 33.1 H 28.0-32.0 pg Mean Corpuscular Hemoglobin Concent 35.4 32.0-36.0 g/dL Red Cell Distribution Width 14.1 11.8-14.3 % Platelet Count 264 140-450 10^3/uL Mean Platelet Volume 8.9 6.9-10.8 fL Neutrophils (%) (Auto) 90.9 H 37.0-80.0 % Lymphocytes (%) (Auto) 2.1 L 10.0-50.0 % Monocytes (%) (Auto) 6.3 0.0-12.0 % Eosinophils (%) (Auto) 0.0 0.0-7.0 % Basophils (%) (Auto) 0.7 0.0-2.0 % Neutrophils # (Auto) 10.2 H 1.6-8.6 10 ^3/uL Lymphocytes # (Auto) 0.2 L 0.4-5.4 10 ^3/uL Monocytes # (Auto) 0.7 0-1.3 10 ^3/uL Eosinophils # (Auto) 0 0-0.8 10 ^3/uL Basophils # (Auto) 0.1 0-0.2 10 ^3/uL Nucleated Red Blood Cells 0.0 % Sodium Level 127 L 136-145 mmol/L Potassium Level 3.6 3.5-5.1 mmol/L Chloride Level 96 L 98-107 mmol/L Carbon Dioxide Level 19 L 20-31 mmol/L Anion Gap 12 5-15 Blood Urea Nitrogen 89 *H 9-23 mg/dL Creatinine 4.79 H 0.700-1.30 mg/dL Glomerular Filtration Rate Calc 12 >90 mL/min BUN/Creatinine Ratio 18.6 10.0-20.0 Serum Glucose 112 H 74-106 mg/dL Lactic Acid Level 2.0 0.4-2.0 mmol/L Calcium Level 8.7 8.7-10.4 mg/dL Magnesium Level 2.4 1.6-2.6 mg/dL Total Bilirubin 0.6 0.2-1.0 mg/dL Aspartate Amino Transferase (AST) 21 13-40 U/L Alanine Aminotransferase (ALT) 35 7-40 U/L Alkaline Phosphatase 65 46-116 U/L Creatine Kinase 43 L 46-171 U/L Troponin I High Sensitivity 16 </=54 ng/L Total Protein 6.3 5.7-8.2 g/dL Albumin 3.8 3.2-4.8 g/dL Lipase 19 12-53 U/L Plasma/Serum Blood Alcohol < 3.0 <10 mg/dL Influenza Type A Antigen Positive Negative Influenza Type B Antigen Negative Negative SARS-CoV-2 Antigen (Rapid) Negative NEGATIVE Urine Color Yellow Yellow Urine Clarity Turbid H Clear Urine pH 5.5 5.0-9.0 Urine Specific [place] 1.019 1.001-1.035 Urine Protein 2+ H Negative Urine Ketones Negative Negative Urine Blood 1+ H Negative /uL Urine Nitrite Negative Negative Urine Bilirubin Negative Negative Urine Urobilinogen Normal Negative mg/dL Urine Leukocyte Esterase Negative Negative /uL Urine RBC 7 0 - 3 /hpf Urine Microscopic WBC 5 H 0-3 /HPF Urine Squamous Epithelial Cells Few <5 /hpf Urine Amorphous Crystals Few None Seen /hpf Urine Bacteria Few H None Seen /hpf Urine Hyaline Casts Mod 0 - 2 /lpf Urine Mucus Few None Seen Urine Glucose Trace Normal mg/dL Stool Occult Blood Positive Negative Stool Occult Blood Sample #3 Negative Urine Opiates Screen Pos NEGATIVE Urine Fentanyl Screen Neg NEGATIVE Urine Barbiturates Screen Neg NEGATIVE Urine Phencyclidine Screen Neg NEGATIVE Urine Amphetamines Screen Pos NEGATIVE Urine Benzodiazepines Screen Neg NEGATIVE Urine Cocaine Screen Neg NEGATIVE Urine Cannabinoids Screen Neg NEGATIVE Assessment/Plan Assessment/Plan Assessment Acute renal failure Multifocal pneumonia Early sepsis COPD Influenza Plan Admit the patient to telemetry to the hospitalist Rocephin/azithromycin Tamiflu D-dimer pending Med nebs Continue treatment per orders. Plan discussed with: Other My Orders Orders - CHARLI GAMBOA Procedure Category Date Status Time *Dr. David Reilly CONS 12/11/24 Transmitted -[place] 00:26 Atorvastatin (Lipitor) PHA 12/11/24 In Process 22:00 Albuterol Medneb PHA 12/11/24 In Process (Ventolin Medneb) 00:30 Azithromycin 500mg/ PHA 12/11/24 In Process 250ml (Zithromax 50 10:00 Sodium Chloride 0.9% PHA 12/11/24 In Process 00:30 Basic Metabolic Panel LAB 12/11/24 Logged 04:00 Complete Blood Count LAB 12/11/24 Logged 04:00 Admit ADMIT 12/11/24 Transmitted 00:26 Renal DIET 12/11/24 Transmitted Standard(2gna,3gk,Lopho) Breakfast Ondansetron Hcl PHA 12/11/24 Pending (Zofran) 00:30 Complete Blood Count LAB 12/12/24 Verified 04:00 Comprehensive LAB 12/12/24 Verified Metabolic Panel 04:00 Condition: Stable BREANA 12/11/24 In Process 00:26 Acetaminophen Tablet PHA 12/11/24 In Process (Tylenol Tablet) 00:30 Bedrest With Bathroom BREANA 12/11/24 In Process Privileg 00:26 Nitroglycerin PHA 12/11/24 In Process Sublingual (Ntrostat 00:30 Morphine Sulfate PHA 12/11/24 In Process Injection 00:30 Stat Ekg For Chest BREANA 12/11/24 In Process Pain 00:26 Notify Of Changes BREANA 12/11/24 In Process From Base 00:26 Enterprise Infrastructure Architect For BREANA 12/11/24 In Process 24 Hours 00:26 Emergency Dysrhythmia BREANA 12/11/24 In Process Protocol 00:26 Rhythm Strips Once BREANA 12/11/24 In Process Every Shift 00:26 Oxygen By Nasal RT 12/11/24 Transmitted Cannula 00:26 Oseltamivir 30mg PHA 12/11/24 In Process Capsule (Tamiflu 30mg 10:00 Ceftriaxone 1gm/50ml PHA 12/12/24 In Process D5w (Rocephin) 01:00 Date of Service: Dec 10, 2024 Billing Provider: CHARLI GAMBOA Common Visit Codes: [id number] INP/OBS CARE (HIGH) CHARLI GAMBOA Dec 11, 2024 04:33
[2024-12-11 05:23] LABS: Calcium 8.8 mg/dL (8.7-10.4); Potassium 3.6 mmol/L (3.5-5.1)
[2024-12-11 05:24] LABS: Anion Gap 16 (5-15)
[2024-12-11 05:29] LABS: Glucose 102 mg/dL (74-106)
[2024-12-11 05:31] LABS: Basophils # (auto) 0.1 10 ^3/uL (0-0.2); Basophils % (auto) 0.5 % (0.0-2.0); Eosinophils # (auto) 0 10 ^3/uL (0-0.8); Eosinophils % (auto) 0.1 % (0.0-7.0); Hematocrit 39.8 % (41.0-53.0); Lymphocytes # (auto) 0.2 10 ^3/uL (0.4-5.4); Lymphocytes % (auto) 1.7 % (10.0-50.0); Mean Corpuscular Hgb Conc. 35.2 g/dL (32.0-36.0); Monocytes # (auto) 0.5 10 ^3/uL (0-1.3); Monocytes % (auto) 4.7 % (0.0-12.0); Neutrophils # (auto) 10.1 10 ^3/uL (1.6-8.6); Platelet Count (auto) 229 10^3/uL (140-450); Red Blood Cells 4.23 10^6/uL (4.5-5.90); Red Cell Distribution Width 14.1 % (11.8-14.3); White Blood Cell 10.8 10^3/uL (4.4-10.8)
[2024-12-11 05:33] LABS: INR 1.05 (0.9-1.15); Prothrombin Time 11.1 sec (9.3-11.8)
[2024-12-11 05:38] LABS: Carbon Dioxide 18 mmol/L (20-31); Chloride 96 mmol/L (98-107); Sodium 130 mmol/L (136-145)
[2024-12-11 05:39] LABS: Blood Urea Nitrogen 95 mg/dL (9-23)
[2024-12-11] MEDS: FUROSEMIDE 40 MG/4 ML VIAL IV ONE (09:30)
[2024-12-11] MEDS: FUROSEMIDE 40 MG/4 ML VIAL ONE (09:44)
[2024-12-11] MEDS ORDERED: AZITHROMYCIN 500MG/ 250ML 250 ML IV SCH (10:00)
--- NOTE | 2024-12-11 10:29 | DVH ---
CHEST RADIOGRAPH Indication: sob Technique: Single frontal view of the chest was obtained COMPARISON: XY CHEST XRAY 1 VIEW on DOS: 12/10/24 FINDINGS: Lines and Tubes: None Lungs: Multifocal airspace disease. Pleura: No effusion. No pneumothorax. Cardiomediastinal contours: Unremarkable Bones: Unremarkable IMPRESSION: Multifocal airspace disease.
--- NOTE | 2024-12-11 10:41 | DVHPN2 ---
Progress Note Date Seen: Dec 11, 2024 Medical Necessity Reason Pt with a Central, PICC or Fol: Yes The following are medically ne: Galeana Catheter Reason for galeana catheter: Strict I&O Subjective Patient reports: No new complaints Review of Systems: HEENT:Normal, CVS:Normal, RESPIRATORY:Normal, GI:Normal, :Normal, MSK:Normal, NEURO:Normal Objective vital signs Vital Sign Date Time Temp Pulse Resp B/P (MAP) Pulse Ox O2 Delivery O2 Flow Rate FiO2 12/11/24 10:22 98 12/11/24 09:44 95/63 12/11/24 09:30 124 Facial BiPAP Mask 100 12/11/24 09:00 99.2 99.2 12/11/24 08:57 22 12/11/24 08:00 4 Total Intake and Output 12/10/24 12/10/24 12/11/24 15:00 23:00 07:00 Intake Total 150 ml Output Total 550 ml Balance -400 ml medications Current Medications Medications Dose Ordered Sig/Tanner Route Start Time Stop Time Status Last Admin Dose Admin Atorvastatin Calcium 20 mg HS PO 12/11/24 22:00 Albuterol 2.5 mg Q6HPRN PRN NEB 12/11/24 00:30 Oseltamivir Phosphate 30 mg Q24H PO 12/11/24 10:00 12/16/24 09:59 Ceftriaxone Sodium 50 ml @ 100 mls/hr Q24H IV 12/12/24 01:00 Azithromycin 250 ml @ 125 mls/hr DAILY IV 12/11/24 10:00 Ondansetron HCl 4 mg Q4HP PRN IV 12/11/24 00:30 Acetaminophen 650 mg Q6HP PRN PO 12/11/24 00:30 12/11/24 03:53 650 MG Nitroglycerin 0.4 mg Q5MINP PRN SL 12/11/24 00:30 Morphine Sulfate 2 mg Q30M PRN IV 12/11/24 00:30 Examination: GENERAL:Normal, HEENT:Normal, NECK:Normal, LUNGS:Normal, LUNGS:Abnormal (ON BIPAP), CVS:Normal, ABDOMEN:Normal, ABDOMEN:Abnormal (OSTOMY+), MSK:Normal, SKIN:Normal, NEURO:Normal, :Normal laboratory and microbiology Laboratory Tests 12/11/24 04:22 Test 12/11/24 04:22 Range/Units Serum Glucose 102 74-106 mg/dL Problem List/Assessment/Plan Problem List/Assessment/Plan #1 acute resp failure: on bipap, monitor abg #2 bilateral pneumonia with sepsis: iv antibiotics, cultures #3 influenza A #4 drug abuse with amphetamines #5 copd with exacerbation: iv steroids #6 htn #7 s/p ostomy/bowel obstruction #8 acute renal failure /vasomotor nephropathy: ivf, nephro eval #9 tobacco abuse Plan discussed with: Patient, Daughter My Orders My Orders Orders - CHARLI WOODWARD MD Procedure Category Date Status Time Chest Portable XY 12/11/24 Resulted 09:21 Rt To Be Present W RT 12/11/24 Transmitted Bipap 09:25 Abg W/ Co-Ox RT 12/11/24 Logged 10:30 BIPAP RT 12/11/24 Logged 09:25 NS PHA 12/11/24 Verified 10:45 NS PHA 12/11/24 Verified 10:45 Methylprednisolone PHA 12/11/24 Verified Sod Succ (Solu Medrol 10:45 Methylprednisolone PHA 12/11/24 Verified Sod Succ (Solu Medrol 14:00 Vancomycin Per PHA 12/11/24 Verified Pharmacy 10:45 Zosyn Extended PHA 12/11/24 Verified Infusion 10:45 Zosyn Extended PHA 12/11/24 Verified Infusion 22:00 Pantoprazole PHA 12/11/24 Verified (Protonix) 10:45 Pantoprazole PHA 12/12/24 Verified (Protonix) 10:00 Transfer Orders XFER 12/11/24 Verified 10:32 Complete Blood Count LAB 12/12/24 Verified 06:00 Comprehensive LAB 12/12/24 Verified Metabolic Panel 06:00 Chest Portable XY 12/12/24 Verified 06:00 Abg W/ Co-Ox RT 12/12/24 Verified 06:00 Blood Culture UNA 12/11/24 Verified 10:32 Critical Care Time (mins): 51 (critical care time outside of procedures is 51 mins) Date of Service: Dec 11, 2024 Billing Provider: CHARLI WOODWARD MD Common Visit Codes: [id number] CARE 30-74 MIN CHARLI WOODWARD MD Dec 11, 2024 10:41
[2024-12-11 10:42] LABS: Base Excess -10.1 mmol/L (-2.0-3.0)
[2024-12-11 10:44] LABS: Base Excess -10.9 mmol/L (-2.0-3.0)
[2024-12-11] MEDS ORDERED: SODIUM CHLORIDE 0.9% 1,000 ML IV SCH (10:45)
[2024-12-11] MEDS ORDERED: VANCOMYCIN PER PHARMACY 0 MG IV SCH (10:45)
[2024-12-11] MEDS: SODIUM CHLORIDE 0.9% 250 ML IV ONE (10:45)
[2024-12-11] MEDS: SODIUM BICARB 50mEq/50ml Vial 50 ML in SOD CHL 0.45% 1,000 ML IV SCH (11:00)
--- NOTE | 2024-12-11 11:10 | DVHINCON2 ---
Date of service: Dec 11, 2024 Referring Physician Rainer Lazo, nurse practitioner Reason for Consultation Acute kidney injury History of Present Illness Patient is a 69-year-old male with past medical history significant for Anemia, Arthritis, COPD, High Lipids, HTN and chronic kidney disease is admitted for generalized weakness nausea vomiting and flu-like symptoms. On admission patient found to have elevated BUN creatinine nephrology is consulted for acute kidney injury Past Medical History PAST MEDICAL HISTORY: Anemia, Arthritis, COPD, High Lipids, HTN Past Surgical History Surgical History (Other): olostomy/ileostomy Allergies: Coded Allergies: Sulfa Antibiotics (Verified Allergy, Severe, RASH, 12/27/18) Home Meds Reported Medications Lisinopril (Lisinopril) 10 Mg Tab, 10 MG PO DAILY for 30 Days, MG 12/27/18 Ibuprofen (Ibuprofen) 800 Mg Tab, 800 MG PO BIDP PRN for MODERATE PAIN, MG 12/27/18 Simvastatin (Simvastatin) 40 Mg Tab, 40 MG PO DAILY for 30 Days 12/31/17 Hydrocodone-Acetaminophen (Hydrocodone Bitartrate/AC 10-325 mg) 1 Tab Tab, 1 TAB PO Q8HP, TAB 12/31/17 Omeprazole (Gnp Omeprazole) 20 Mg Tab, 20 MG PO DAILY, TAB 12/31/17 Temazepam (Temazepam) 30 Mg Cap, 30 MG PO HS, CAP 12/31/17 Current Medications Current Medications Medications (Trade) Dose Ordered Sig/Tanner Route PRN Reason Start Time Stop Time Status Last Admin Atorvastatin Calcium (Lipitor) 20 mg HS PO 12/11/24 22:00 12/11/24 10:43 DC Albuterol (Ventolin Medneb) 2.5 mg Q6HPRN PRN NEB SHORTNESS OF BREATH 12/11/24 00:30 Oseltamivir Phosphate (Tamiflu 30MG Capsule) 30 mg Q24H PO 12/11/24 10:00 12/16/24 09:59 12/11/24 11:40 Ceftriaxone Sodium 50 ml @ 100 mls/hr Q24H IV 12/12/24 01:00 12/11/24 10:37 DC Azithromycin 250 ml @ 125 mls/hr DAILY IV 12/11/24 10:00 12/11/24 10:37 DC Ondansetron HCl (Zofran) 4 mg Q4HP PRN IV NAUSEA / VOMITING 12/11/24 00:30 Acetaminophen (Tylenol Tablet) 650 mg Q6HP PRN PO PAIN SCALE 1-3 OR TEMP>100.4 12/11/24 00:30 12/11/24 03:53 Nitroglycerin (Ntrostat Sublingual) 0.4 mg Q5MINP PRN SL FOR CHEST PAIN 12/11/24 00:30 Morphine Sulfate 2 mg Q30M PRN IV FOR CHEST PAIN 12/11/24 00:30 Sodium Chloride 1,000 ml @ 75 mls/hr [id number] IV 12/11/24 10:45 12/11/24 10:52 DC Methylprednisolone Sodium Succinate (Solu Medrol) 40 mg Q8HR IV 12/11/24 14:00 Vancomycin HCl 0 ml @ 0 mls/hr UD IV 12/11/24 10:45 Piperacillin Sod/ Tazobactam Sod 100 ml @ 25 mls/hr Q12HR IV 12/11/24 22:00 Pantoprazole Sodium (Protonix) 40 mg DAILY IV 12/12/24 10:00 Albuterol (Ventolin Medneb) 2.5 mg Q4HWA NEB 12/11/24 14:00 Ipratropium Cow[place] (Atrovent Medneb) 0.5 mg Q4HWA NEB 12/11/24 14:00 Sodium Bicarbonate 50 ml/ Sodium Chloride 1,050 ml @ 75 mls/hr Q14H IV 12/11/24 11:00 Family History: Arthritis G8 MOTHER, Onset:50's - 60 Review of Systems Can not be obtained due to altered level of consciousness H&P Exam Vital Signs/I&O Vital Sign Date Time Temp Pulse Resp B/P (MAP) Pulse Ox O2 Delivery O2 Flow Rate FiO2 12/11/24 11:46 107 100 Facial BiPAP Mask 100 12/11/24 09:44 95/63 12/11/24 09:00 99.2 99.2 12/11/24 08:57 22 12/11/24 08:00 4 Intake and Output 12/10/24 12/11/24 19:00 07:00 Intake Total 150 ml Output Total 550 ml Balance -400 ml Intake IV Total 150 ml Output Urine Total 550 ml Physical Exam Patient is cachectic on high flow oxygen noncommunicating Lungs clear to auscultation bilaterally Cardiac exam regular rate and rhythm GI soft nontender was normal Extremities no clubbing cyanosis edema Can not assess the altered level of conscious Labs/Diagnostic Data Labs/Diagnostic Data Laboratory Tests Test 12/11/24 10:37 12/11/24 09:15 12/11/24 04:22 12/10/24 22:16 Range/Units Blood Gas Specimen Type Arterial Arterial Blood Gas Sample Site Right radial Right radial Blood Gas Patient Temperature 37.0 37.0 Arterial Blood Date Drawn [id number] Arterial Blood pH 7.317 L 7.242 *L 7.350-7.450 Arterial Blood Partial Pressure CO2 26.3 L 39.4 35.0-48.0 mmHg Arterial Blood Partial Pressure O2 99.6 61.1 L 83.0-108.0 mmHg Arterial Blood HCO3 13.2 L 16.6 L 21.0-28.0 mmol/L Arterial Blood Oxygen Saturation 96.3 85.4 L 94.0-98.0 % Arterial Blood Base Excess -10.9 L -10.1 L -2.0-3.0 mmol/L Arterial Blood Oxyhemoglobin 95.6 84.5 L 94.0-98.0 % Arterial Blood Carboxyhemoglobin 0.3 L 0.5 0.5-1.5 % Arterial Blood Methemoglobin 0.4 0.5 0.0-1.5 % Enrico Test Yes Positive Blood Gas Total Hemoglobin 16.70 17.20 13.5-17.5 g/dL Blood Gas Set Respiration Rate 12.0 Blood Gas Modality Mask - bipap Mask - nrb FiO2 % 100.0 100.0 Blood Gas EPAP 7 Blood Gas IPAP 12 Blood Gas Critical Value Read Back Yes Blood Gas Notified Whom Milton lazo md Blood Gas Notified Time [id number] Blood Gas Notified By Yadira whyte rrt White Blood Count 10.8 11.3 H 4.4-10.8 10^3/uL Red Blood Count 4.23 L 4.60 4.5-5.90 10^6/uL Hemoglobin 14.0 15.2 13.5-17.5 g/dL Hematocrit 39.8 L 43.0 41.0-53.0 % Mean Corpuscular Volume 94.0 93.4 80.0-100.0 fL Mean Corpuscular Hemoglobin 33.0 H 33.1 H 28.0-32.0 pg Mean Corpuscular Hemoglobin Concent 35.2 35.4 32.0-36.0 g/dL Red Cell Distribution Width 14.1 14.1 11.8-14.3 % Platelet Count 229 264 140-450 10^3/uL Mean Platelet Volume 9.3 8.9 6.9-10.8 fL Neutrophils (%) (Auto) 93.0 H 90.9 H 37.0-80.0 % Lymphocytes (%) (Auto) 1.7 L 2.1 L 10.0-50.0 % Monocytes (%) (Auto) 4.7 6.3 0.0-12.0 % Eosinophils (%) (Auto) 0.1 0.0 0.0-7.0 % Basophils (%) (Auto) 0.5 0.7 0.0-2.0 % Neutrophils # (Auto) 10.1 H 10.2 H 1.6-8.6 10 ^3/uL Lymphocytes # (Auto) 0.2 L 0.2 L 0.4-5.4 10 ^3/uL Monocytes # (Auto) 0.5 0.7 0-1.3 10 ^3/uL Eosinophils # (Auto) 0 0 0-0.8 10 ^3/uL Basophils # (Auto) 0.1 0.1 0-0.2 10 ^3/uL Nucleated Red Blood Cells 0.0 0.0 % Prothrombin Time 11.1 9.3-11.8 sec Prothrombin Time INR 1.05 0.9-1.15 D-Dimer, Quantitative 8.01 H 0.0-0.49 mg/L FEU Sodium Level 130 L 127 L 136-145 mmol/L Potassium Level 3.6 3.6 3.5-5.1 mmol/L Chloride Level 96 L 96 L 98-107 mmol/L Carbon Dioxide Level 18 L 19 L 20-31 mmol/L Anion Gap 16 H 12 5-15 Blood Urea Nitrogen 95 *H 89 *H 9-23 mg/dL Creatinine 4.31 H 4.79 H 0.700-1.30 mg/dL Glomerular Filtration Rate Calc 14 12 >90 mL/min BUN/Creatinine Ratio 22.0 H 18.6 10.0-20.0 Serum Glucose 102 112 H 74-106 mg/dL Calcium Level 8.8 8.7 8.7-10.4 mg/dL Phosphorus Level 4.6 2.4-5.1 mg/dL Magnesium Level 2.3 2.4 1.6-2.6 mg/dL B-Type Natriuretic Peptide 25.84 0-100 pg/mL Vitamin D 25-Hydroxy 30.2 30.0-100 ng/mL Parathyroid Hormone (Intact) 66.6 18.4-80.1 pg/mL Hepatitis B Surface Antigen Negative Negative Hepatitis C Antibody Negative Negative Lactic Acid Level 2.0 0.4-2.0 mmol/L Total Bilirubin 0.6 0.2-1.0 mg/dL Aspartate Amino Transferase (AST) 21 13-40 U/L Alanine Aminotransferase (ALT) 35 7-40 U/L Alkaline Phosphatase 65 46-116 U/L Creatine Kinase 43 L 46-171 U/L Troponin I High Sensitivity 16 </=54 ng/L Total Protein 6.3 5.7-8.2 g/dL Albumin 3.8 3.2-4.8 g/dL Lipase 19 12-53 U/L Plasma/Serum Blood Alcohol < 3.0 <10 mg/dL Test 12/10/24 22:10 12/10/24 21:30 Range/Units Influenza Type A Antigen Positive Negative Influenza Type B Antigen Negative Negative SARS-CoV-2 Antigen (Rapid) Negative NEGATIVE Urine Color Yellow Yellow Urine Clarity Turbid H Clear Urine pH 5.5 5.0-9.0 Urine Specific [place] 1.019 1.001-1.035 Urine Protein 2+ H Negative Urine Ketones Negative Negative Urine Blood 1+ H Negative /uL Urine Nitrite Negative Negative Urine Bilirubin Negative Negative Urine Urobilinogen Normal Negative mg/dL Urine Leukocyte Esterase Negative Negative /uL Urine RBC 7 0 - 3 /hpf Urine Microscopic WBC 5 H 0-3 /HPF Urine Squamous Epithelial Cells Few <5 /hpf Urine Amorphous Crystals Few None Seen /hpf Urine Bacteria Few H None Seen /hpf Urine Hyaline Casts Mod 0 - 2 /lpf Urine Mucus Few None Seen Urine Glucose Trace Normal mg/dL Stool Occult Blood Positive Negative Stool Occult Blood Sample #3 Negative Urine Opiates Screen Pos NEGATIVE Urine Fentanyl Screen Neg NEGATIVE Urine Barbiturates Screen Neg NEGATIVE Urine Phencyclidine Screen Neg NEGATIVE Urine Amphetamines Screen Pos NEGATIVE Urine Benzodiazepines Screen Neg NEGATIVE Urine Cocaine Screen Neg NEGATIVE Urine Cannabinoids Screen Neg NEGATIVE Assessment Acute kidney injury superimposed Chronic Kidney Disease secondary hemodynamic mediated Acute hypoxic respiratory failure, BiPAP COPD exacerbation Encephalopathy Influenza A Pneumonia AFib with RVR Hyponatremia due to dehydration Metabolic acidosis Recommendation Closely monitor fluid and electrolytes Avoid nephrotoxic medications Owens catheter Strict I&Os I agree with IV fluid hydration Check urine electrolytes and urine protein excretion Check kidney ultrasound IV antibiotics Pulmonary consult Cardiology consult We will continue to follow Patient seen and examined by myself. I discussed my plan of care with the daughter and the primary nurse at the bedside I would like to thank Rainer for the consult, will follow up Plan discussed with: Patient LA BOYER MD Dec 11, 2024 11:10
[2024-12-11 11:32] LABS: Magnesium 2.3 mg/dL (1.6-2.6)
--- NOTE | 2024-12-11 11:32 | DVH ---
RENAL ULTRASOUND CLINICAL HISTORY: renal failure TECHNIQUE: Multiple ultrasound images of the kidneys and bladder were obtained. COMPARISON: CT abdomen and pelvis 12/10/2024 FINDINGS: The right kidney measures 12.6 cm in length. The left kidney measures 11.9 cm. The kidneys demonstrat e appropriate echotexture without evidence of nephrolithiasis or hydronephrosis. There is a 1.5 cm ri ght upper pole renal cysts. There is a Owens catheter in the bladder which is decompressed limiting evaluation. IMPRESSION: 1. There is no sonographic evidence of nephrolithiasis or hydronephrosis. 2. 1.5 cm right upper pole renal cysts. HS:Y
[2024-12-11 11:34] LABS: Phosphorus 4.6 mg/dL (2.4-5.1)
[2024-12-11] MEDS: methylPREDNISolone SOD SUCC 125 MG/2 ML VL IV ONE (11:39)
[2024-12-11] MEDS: PANTOPRAZOLE 40 MG/10 ML VIAL INJ IV ONE (11:39)
[2024-12-11] MEDS: OSELTAMIVIR 30 MG CAP PO SCH (11:40)
[2024-12-11] MEDS: PIPERACILLIN-TAZOB 3.375GM 100 ML IV ONE (11:40)
[2024-12-11 12:41] LABS: Hepatitis B Surface Antigen Negative (Negative)
[2024-12-11 13:01] LABS: Hepatitis C Antibody Negative (Negative)
[2024-12-11] MEDS: IPRATROPIUM BROM 0.5 MG/2.5ML INH SOL NEB SCH (13:55)
[2024-12-11] MEDS: ALBUTEROL SULF 2.5 MG/0.5ML(0.5%) NEB SOLN NEB SCH (13:55)
[2024-12-11] MEDS: VANCOMYCIN 1GM/250ML KIT 250 ML IV ONE (14:05)
--- NOTE | 2024-12-11 15:25 | DVHSR ---
APPROVED REPORT EXAM: Two-dimensional and M-mode echocardiogram with Doppler and color Doppler. Blood Pressure: 95/63 mmHg INDICATION CAD RISK FACTORS Height: 73, Weight: 134 DIMENSIONS LVDd4.6 (3.8-5.7cm)LA (2D) (1.9-4.0cm)Aortic Root4.1 (2.0-3.7cm) LVDs3.3 (2.5-4.0cm)LA (MM) (1.9-4.0cm)Aortic Cusp Exc2.2 (1.5-2.0cm) EF (%) 55.0 (55-70%)Rt. Atrium4.2 (1.9-4.0cm)Asc. Aorta cm IVSd1.2 (0.7-1.1cm)RV (D) (1.8-2.4cm) PWd1.3 (0.7-1.1cm) Mitral Valve MitralMitral Stenosis E/A ratio0.02D MVAcm2 Aortic Valve Aortic ValveAortic Stenosis V11.10m/Miguel Angel Mean GR.3mmHg V21.16m/Miguel Angel Peak GR.5mmHg LVOT Diameter2.2 (1.8-2.4cm)Doppler AVA3.60cm2 Other Information Technically limited study due to body habitus, patient position and patient breathing.Patient was on bipap during exam. Conclusion tachycardia durng study lvef 55% by visual estimate normal rv function left atrium compressed by thoracic aorta, correlate to size,
[2024-12-11] MEDS: methylPREDNISolone SOD SUCC 40 MG/ML VL IV SCH (17:11)
[2024-12-11 20:04] LABS: Urine Bacteria FEW /hpf (None Seen); Urine Blood 2+ /uL (Negative); Urine Clarity Clear (Clear); Urine Color Light-Yellow (Yellow); Urine Protein, UAD 1+ (Negative); Urine Specific Gravity 1.012 (1.001-1.035); Urine Squamous Epithelial Cell FEW /hpf (<5); Urine Urobilinogen Normal (Negative); Urine WBC 4 /HPF (0-3)
[2024-12-11 20:19] LABS: Protein, Urine 86.7 mg/dL (1-14)
[2024-12-11 20:21] LABS: Creatinine, Urine 62.24 mg/dL (30.0-125.0); Urine Protein/Creatinine Ratio 1.39
[2024-12-11] MEDS: PIPERACILLIN-TAZOB 3.375GM 100 ML IV SCH (21:10)
[2024-12-11] MEDS ORDERED: ATORVASTATIN 20 MG TAB PO SCH (22:00)
[2024-12-12] VITALS (17 sets, daily range): BP systolic 104–117; BP diastolic 62–86; PULSE 64–156; RESP 15–22; TEMP 97.5–98.4; O2SAT 90–100
[2024-12-12] MEDS ORDERED: cefTRIAXone 1GM/50ML D5W 50 ML IV SCH (01:00)
[2024-12-12] MEDS: AMIODARONE BOLUS KIT 100 ML IV ONE ×2 (06:27→07:32)
[2024-12-12] MEDS: AMIODARONE 360mg/200mL PREMIX 200 ML IV ONE ×2 (06:28→07:55)
[2024-12-12 06:46] LABS: Hematocrit 42.3 % (41.0-53.0); Hemoglobin 14.9 g/dL (13.5-17.5); Mean Corpuscular Hemoglobin 32.9 pg (28.0-32.0); Mean Corpuscular Hgb Conc. 35.3 g/dL (32.0-36.0); Platelet Count (auto) 217 10^3/uL (140-450); Red Blood Cells 4.55 10^6/uL (4.5-5.90); Red Cell Distribution Width 14.1 % (11.8-14.3); White Blood Cell 27.7 10^3/uL (4.4-10.8)
[2024-12-12 06:48] LABS: Alanine Aminotransferase 37 U/L (7-40); Alkaline Phosphatase 70 U/L (46-116); Anion Gap 13 (5-15); BUN/Creatinine Ratio 28.5 (10.0-20.0); Calcium 9.1 mg/dL (8.7-10.4); Carbon Dioxide 21 mmol/L (20-31); Potassium 3.7 mmol/L (3.5-5.1); Total Protein 5.9 g/dL (5.7-8.2)
[2024-12-12 06:49] LABS: Albumin 3.4 g/dL (3.2-4.8); Aspartate Aminotransferase 36 U/L (13-40)
[2024-12-12 06:50] LABS: Bilirubin, Total 0.9 mg/dL (0.2-1.0)
[2024-12-12 07:00] LABS: Chloride 95 mmol/L (98-107); Glucose 128 mg/dL (74-106); Sodium 129 mmol/L (136-145)
[2024-12-12 07:04] LABS: Blood Urea Nitrogen 102 mg/dL (9-23)
--- NOTE | 2024-12-12 07:08 | ECG ---
[facility] Test Date: 2024-12-12 Test Time: 07:07:31 Pat Name: TAMANNA DURAN Department: Room: 0233T A Gender: M Mail Order Clerk: TODD : 1955 Requested By: CHARLI GAMBOA Order Number: [id number] Reading MD: Nima Tyson Measurements Intervals [place] Rate: 136 P: 0 ID: 0 QRS: -23 QRSD: 109 T: 72 QT: 294 QTc: 443 Interpretive Statements Atrial fibrillation Incomplete RBBB and LAFB RSR' in V1 or V2, probably normal variant Artifact in lead(s) II,III,aVR,aVL,aVF,V1,V2,V3,V4,V5,V6 Electronically Signed On 12-13-2024 16:31:13 PDT by Nima Tyson Please click the below link to view image of tracing.
[2024-12-12 07:22] LABS: Basophils % (manual) 0 (0.0-2.0); Eosinophils % (manual) 0 (0-7); Metamyelocytes % 0; Myelocytes % 0
[2024-12-12 07:23] LABS: Blast Cells 0; Promyelocytes % 0; Reactive Lymphocytes 0
--- NOTE | 2024-12-12 08:24 | ECG ---
[facility] Test Date: 2024-12-10 Test Time: 22:14:20 Pat Name: TAMANNA DURAN Department: 4 Room: 0233T A Gender: M Compressor Technician: nelly : 1955 Requested By: KRUPA HANSON Order Number: [id number] Reading MD: Nima Tyson Measurements Intervals [place] Rate: 137 P: 104 [place]: 173 QRS: 95 QRSD: 114 T: 91 QT: 314 QTc: 474 Interpretive Statements Sinus tachycardia Paired ventricular premature complexes LAE, consider biatrial enlargement Incomplete right bundle branch block Lateral infarct, old Minimal ST elevation, inferior leads Electronically Signed On 12-15-2024 22:59:55 PDT by Nima Tyson Please click the below link to view image of tracing.
[2024-12-12 08:30] LABS: Band Neutrophils % (manual) 23; Lymphocytes % (manual) 3 (10.0-50.0); Monocytes % (manual) 1 (0-12); Platelet Estimate Adequate
[2024-12-12 08:34] LABS: Base Excess -3.1 mmol/L (-2.0-3.0)
[2024-12-12] MEDS: PANTOPRAZOLE 40 MG/10 ML VIAL INJ IV SCH (10:32)
--- NOTE | 2024-12-12 10:32 | DVH ---
CHEST RADIOGRAPH Indication: PNEUMONIA Technique: Single frontal view of the chest was obtained COMPARISON: XY CHEST PORTABLE on DOS: 12/11/24, XY CHEST XRAY 1 VIEW on DOS: 12/10/24 FINDINGS: Lines and Tubes: None Lungs: Multifocal airspace disease. Pleura: No effusion. No pneumothorax. Cardiomediastinal contours: Unremarkable Bones: Unremarkable IMPRESSION: Multifocal airspace disease, slightly improved.
[2024-12-12] MEDS ORDERED: MORPHINE SULFATE INJ 2 MG/ml SYRG IV PRN (12:00)
[2024-12-12] MEDS ORDERED: THROAT LOZENGES(CEPASTAT) MT PRN (12:00)
--- NOTE | 2024-12-12 12:07 | DVHPN2 ---
Progress Note Date Seen: Dec 12, 2024 Medical Necessity Reason Pt with a Central, PICC or Fol: Yes The following are medically ne: Galeana Catheter Reason for galeana catheter: Strict I&O Subjective Patient reports: No new complaints Review of Systems: HEENT:Normal, CVS:Normal, RESPIRATORY:Normal, GI:Normal, :Normal, MSK:Normal, NEURO:Normal Objective vital signs Vital Sign Date Time Temp Pulse Resp B/P (MAP) Pulse Ox O2 Delivery O2 Flow Rate FiO2 12/12/24 09:35 97.7 68 16 108/86 (93) 94 97.7 12/12/24 09:04 Nasal Cannula 3.0 12/12/24 09:04 32 Total Intake and Output 12/11/24 12/11/24 12/12/24 15:00 23:00 07:00 Intake Total 250 ml 950 ml 500 ml Output Total 400 ml 450 ml 3220 ml Balance -150 ml 500 ml -2720 ml medications Current Medications Medications Dose Ordered Sig/Tanner Route Start Time Stop Time Status Last Admin Dose Admin Albuterol 2.5 mg Q6HPRN PRN NEB 12/11/24 00:30 Oseltamivir Phosphate 30 mg Q24H PO 12/11/24 10:00 12/16/24 09:59 12/12/24 10:32 30 MG Ondansetron HCl 4 mg Q4HP PRN IV 12/11/24 00:30 Acetaminophen 650 mg Q6HP PRN PO 12/11/24 00:30 12/12/24 03:48 650 MG Nitroglycerin 0.4 mg Q5MINP PRN SL 12/11/24 00:30 Morphine Sulfate 2 mg Q30M PRN IV 12/11/24 00:30 Methylprednisolone Sodium Succinate 40 mg Q8HR IV 12/11/24 14:00 12/12/24 05:28 40 MG Vancomycin HCl 0 ml @ 0 mls/hr UD IV 12/11/24 10:45 Piperacillin Sod/ Tazobactam Sod 100 ml @ 25 mls/hr Q12HR IV 12/11/24 22:00 12/12/24 10:31 25 MLS/HR Pantoprazole Sodium 40 mg DAILY IV 12/12/24 10:00 12/12/24 10:32 40 MG Ipratropium [place] 0.5 mg Q4HWA NEB 12/11/24 14:00 12/12/24 09:01 0.5 MG Sodium Bicarbonate 50 ml/ Sodium Chloride 1,050 ml @ 75 mls/hr Q14H IV 12/11/24 11:00 12/12/24 01:19 75 MLS/HR Levalbuterol HCl 1.25 mg Q4HWA [facility] 12/12/24 10:00 UNV Examination: GENERAL:Normal, HEENT:Normal, NECK:Normal, LUNGS:Normal, LUNGS:Abnormal (on oxygen), CVS:Normal, ABDOMEN:Normal, MSK:Normal, SKIN:Normal, NEURO:Normal, :Normal laboratory and microbiology Laboratory Tests 12/12/24 05:20 Test 12/12/24 05:20 Range/Units Serum Glucose 128 H 74-106 mg/dL Microbiology Date/Time Source Procedure Growth Status 12/11/24 11:35 Blood Blood Culture - Preliminary NO GROWTH AFTER 24 HOURS OF INCUBATION. Resulted Problem List/Assessment/Plan Problem List/Assessment/Plan #1 acute resp failure: on bipap, oxygen #2 bilateral pneumonia with sepsis ?staph aureus: iv antibiotics, cultures #3 influenza A #4 drug abuse with amphetamines #5 copd with exacerbation: iv steroids #6 htn #7 s/p ostomy/bowel obstruction #8 acute renal failure /vasomotor nephropathy: ivf, nephro eval #9 tobacco abuse #10 mod protein malnutrition advance care planning- chemical code- time spent 21 mins Plan discussed with: Patient My Orders My Orders Orders - CHARLI WOODWARD MD Procedure Category Date Status Time * Wound Consult CONS 12/11/24 Transmitted Code Status CODE 12/11/24 Transmitted 13:45 Vancomycin 1gm/250ml PHA 12/12/24 In Process Kit 14:00 Vancomycin Per BREANA 12/12/24 In Process Pharmacy Protoc 14:00 Creatinine LAB 12/13/24 Verified 05:00 Levalbuterol Hcl PHA 12/12/24 Logged (Xopenex Medneb) 10:00 Date of Service: Dec 12, 2024 Billing Provider: CHARLI WOODWARD MD Common Visit Codes: [id number] INP/OBS CARE(HIGH) Secondary Visit Codes: [id number] CARE PLAN 30 MINUTES CHARLI WOODWARD MD Dec 12, 2024 12:07
[2024-12-12] MEDS: AMIODARONE 360mg/200mL PREMIX 200 ML IV SCH (14:02)
[2024-12-12] MEDS: LORazepam 2MG/ML-1ML VIAL IV PRN (15:04)
--- NOTE | 2024-12-12 15:09 | DVHPN2 ---
Progress Note Date Seen: Dec 12, 2024 Medical Necessity Reason Pt with a Central, PICC or Fol: Yes The following are medically ne: Galeana Catheter Reason for galeana catheter: Strict I&O Subjective Review of Systems: RESPIRATORY:Abnormal Other Systems: Patient seen and examined by myself today in follow-up O2 nasal cannula Objective vital signs Vital Sign Date Time Temp Pulse Resp B/P (MAP) Pulse Ox O2 Delivery O2 Flow Rate FiO2 12/12/24 14:04 94 Nasal Cannula 3.0 12/12/24 14:04 32 12/12/24 12:15 97.8 125 18 117/73 (88) 97.8 Total Intake and Output 12/11/24 12/11/24 12/12/24 15:00 23:00 07:00 Intake Total 250 ml 950 ml 500 ml Output Total 400 ml 450 ml 3220 ml Balance -150 ml 500 ml -2720 ml medications Current Medications Medications Dose Ordered Sig/Tanner Route Start Time Stop Time Status Last Admin Dose Admin Albuterol 2.5 mg Q6HPRN PRN NEB 12/11/24 00:30 Oseltamivir Phosphate 30 mg Q24H PO 12/11/24 10:00 12/16/24 09:59 12/12/24 10:32 30 MG Ondansetron HCl 4 mg Q4HP PRN IV 12/11/24 00:30 Acetaminophen 650 mg Q6HP PRN PO 12/11/24 00:30 12/12/24 03:48 650 MG Nitroglycerin 0.4 mg Q5MINP PRN SL 12/11/24 00:30 Morphine Sulfate 2 mg Q30M PRN IV 12/11/24 00:30 Vancomycin HCl 0 ml @ 0 mls/hr UD IV 12/11/24 10:45 Piperacillin Sod/ Tazobactam Sod 100 ml @ 25 mls/hr Q12HR IV 12/11/24 22:00 12/12/24 10:31 25 MLS/HR Pantoprazole Sodium 40 mg DAILY IV 12/12/24 10:00 12/12/24 10:32 40 MG Ipratropium [place] 0.5 mg Q4HWA NEB 12/11/24 14:00 12/12/24 09:01 0.5 MG Sodium Bicarbonate 50 ml/ Sodium Chloride 1,050 ml @ 75 mls/hr Q14H IV 12/11/24 11:00 12/12/24 01:19 75 MLS/HR Levalbuterol HCl 1.25 mg Q4HWA NEB 12/12/24 10:00 Methylprednisolone Sodium Succinate 40 mg BID IV 12/12/24 22:00 Enteral Nutritional Formula 240 ml BIDWM PO 12/12/24 18:00 Throat Lozenges 1 jan Q2HP PRN MT 12/12/24 12:00 Lorazepam 0.5 mg Q8HP PRN IV 12/12/24 12:00 Morphine Sulfate 1 mg Q6HP PRN IV 12/12/24 12:00 Examination: LUNGS:Normal, CVS:Normal, MSK:Normal laboratory and microbiology Laboratory Tests 12/12/24 05:20 Test 12/12/24 05:20 Range/Units Serum Glucose 128 H 74-106 mg/dL Microbiology Date/Time Source Procedure Growth Status 12/11/24 11:35 Blood Blood Culture - Preliminary NO GROWTH AFTER 24 HOURS OF INCUBATION. Resulted Problem List/Assessment/Plan Problem List/Assessment/Plan Acute kidney injury superimposed Chronic Kidney Disease secondary hemodynamic mediated, FeNa > 2% Acute hypoxic respiratory failure, high-flow oxygen COPD exacerbation Encephalopathy Influenza A Pneumonia, multifocal AFib with RVR Hyponatremia due to dehydration Metabolic acidosis Recommendation Kidney function slightly improving Increased urine output High BUN to creatinine ratio due to steroids Galeana catheter Strict I&Os kidney ultrasound reported within normal limits IV antibiotics Pulmonary consult Cardiology consult We will continue to follow Plan discussed with: Patient LA BOYER MD Dec 12, 2024 15:09
[2024-12-12] MEDS: VANCOMYCIN 1GM/250ML KIT 250 ML IV ONE (15:18)
[2024-12-12] MEDS: ENSURE CLEAR Mixed Berry 8oz Carton PO SCH (18:00)
[2024-12-12] MEDS: LEVALBUTEROL HCL 1.25 MG/3 ML NEB NEB SCH (19:13)
[2024-12-12] MEDS: methylPREDNISolone SOD SUCC 40 MG/ML VL IV SCH (22:01)
[2024-12-13] VITALS (14 sets, daily range): BP systolic 103–121; BP diastolic 71–84; PULSE 93–122; RESP 18–24; TEMP 97.6–98.4; O2SAT 82–98
[2024-12-13 06:07] LABS: Mean Corpuscular Hemoglobin 31.9 pg (28.0-32.0); Red Cell Distribution Width 14.2 % (11.8-14.3)
[2024-12-13 06:09] LABS: Hematocrit 44.6 % (41.0-53.0); Hemoglobin 15.4 g/dL (13.5-17.5); Mean Corpuscular Hgb Conc. 34.5 g/dL (32.0-36.0); Mean Corpuscular Volume 92.4 fL (80.0-100.0); Platelet Count (auto) 209 10^3/uL (140-450); Red Blood Cells 4.83 10^6/uL (4.5-5.90)
[2024-12-13 06:53] LABS: White Blood Cell 36.6 10^3/uL (4.4-10.8)
[2024-12-13 06:54] LABS: Basophils % (manual) 0 (0.0-2.0); Blast Cells 0; Eosinophils % (manual) 0 (0-7); Myelocytes % 0; Promyelocytes % 0; Reactive Lymphocytes 0
[2024-12-13 09:28] LABS: Anion Gap 15 (5-15); Carbon Dioxide 21 mmol/L (20-31)
[2024-12-13 09:29] LABS: Calcium 10.1 mg/dL (8.7-10.4)
[2024-12-13 09:33] LABS: Chloride 101 mmol/L (98-107); Potassium 3.3 mmol/L (3.5-5.1); Sodium 137 mmol/L (136-145)
[2024-12-13 09:34] LABS: BUN/Creatinine Ratio 45.9 (10.0-20.0); Glucose 148 mg/dL (74-106)
[2024-12-13 09:36] LABS: Blood Urea Nitrogen 84 mg/dL (9-23)
[2024-12-13 09:52] LABS: Band Neutrophils % (manual) 10; Lymphocytes % (manual) 5 (10.0-50.0); Metamyelocytes % 2; Monocytes % (manual) 4 (0-12)
[2024-12-13 09:53] LABS: Platelet Estimate Adequate
[2024-12-13] MEDS ORDERED: VANCOMYCIN 500mg/100mL 100 ML IV ONE (10:15)
--- NOTE | 2024-12-13 11:39 | DVHPN2 ---
Progress Note Date Seen: Dec 13, 2024 Medical Necessity Reason Pt with a Central, PICC or Fol: Yes The following are medically ne: Galeana Catheter Reason for galeana catheter: Strict I&O Subjective Patient reports: No new complaints Review of Systems: HEENT:Normal, CVS:Normal, RESPIRATORY:Normal, GI:Normal, :Normal, MSK:Normal, NEURO:Normal Objective vital signs Vital Sign Date Time Temp Pulse Resp B/P (MAP) Pulse Ox O2 Delivery O2 Flow Rate FiO2 12/13/24 11:16 91 Nasal Cannula* 5 40 12/13/24 11:16 102 18 12/13/24 04:30 98.4 121/84 (96) 98.4 Total Intake and Output 12/12/24 12/12/24 12/13/24 15:00 23:00 07:00 Intake Total 1058.3 ml 400 ml Output Total 480 ml Balance 1058.3 ml -80 ml medications Current Medications Medications Dose Ordered Sig/Tanner Route Start Time Stop Time Status Last Admin Dose Admin Albuterol 2.5 mg Q6HPRN PRN NEB 12/11/24 00:30 Oseltamivir Phosphate 30 mg Q24H PO 12/11/24 10:00 12/16/24 09:59 12/13/24 09:48 30 MG Ondansetron HCl 4 mg Q4HP PRN IV 12/11/24 00:30 Acetaminophen 650 mg Q6HP PRN PO 12/11/24 00:30 12/12/24 03:48 650 MG Nitroglycerin 0.4 mg Q5MINP PRN SL 12/11/24 00:30 Morphine Sulfate 2 mg Q30M PRN IV 12/11/24 00:30 Vancomycin HCl 0 ml @ 0 mls/hr UD IV 12/11/24 10:45 Piperacillin Sod/ Tazobactam Sod 100 ml @ 25 mls/hr Q12HR IV 12/11/24 22:00 12/13/24 09:49 25 MLS/HR Pantoprazole Sodium 40 mg DAILY IV 12/12/24 10:00 12/13/24 09:47 40 MG Ipratropium [place] 0.5 mg Q4HWA NEB 12/11/24 14:00 12/13/24 11:16 0.5 MG Sodium Bicarbonate 50 ml/ Sodium Chloride 1,050 ml @ 75 mls/hr Q14H IV 12/11/24 11:00 12/13/24 06:21 75 MLS/HR Levalbuterol HCl 1.25 mg Q4HWA NEB 12/12/24 10:00 12/13/24 11:16 1.25 MG Methylprednisolone Sodium Succinate 40 mg BID IV 12/12/24 22:00 12/13/24 09:48 40 MG Enteral Nutritional Formula 240 ml BIDWM PO 12/12/24 18:00 12/13/24 08:00 240 ML Throat Lozenges 1 jan Q2HP PRN MT 12/12/24 12:00 Lorazepam 0.5 mg Q8HP PRN IV 12/12/24 12:00 12/13/24 00:06 0.5 MG Acetaminophen/ Hydrocodone Bitart 1 tab Q4HPRN PRN PO 12/12/24 16:30 Examination: GENERAL:Normal, HEENT:Normal, NECK:Normal, LUNGS:Normal, LUNGS:Abnormal (ON OXYGEN), CVS:Normal, ABDOMEN:Normal, MSK:Normal, SKIN:Normal, NEURO:Normal, :Normal laboratory and microbiology Laboratory Tests 12/13/24 05:08 Test 12/13/24 05:08 Range/Units Serum Glucose 148 H 74-106 mg/dL Microbiology Date/Time Source Procedure Growth Status 12/11/24 11:35 Blood Blood Culture - Preliminary NO GROWTH AFTER 24 HOURS OF INCUBATION. Resulted Problem List/Assessment/Plan Problem List/Assessment/Plan #1 acute resp failure: on bipap, oxygen #2 bilateral pneumonia with sepsis /staph aureus: iv antibiotics, cultures #3 influenza A #4 drug abuse with amphetamines #5 copd with exacerbation: iv steroids #6 htn #7 s/p ostomy/bowel obstruction #8 acute renal failure /vasomotor nephropathy: ivf, nephro eval #9 tobacco abuse #10 mod protein malnutrition advance care planning- chemical code- time spent 21 mins Plan discussed with: Patient, Daughter My Orders My Orders Orders - CHARLI WOODWARD MD Procedure Category Date Status Time Methylprednisolone PHA 12/12/24 In Process Sod Succ (Solu Medrol 22:00 Full Liq Diet DIET 12/12/24 Transmitted Lunch Nutritional PHA 12/12/24 In Process Supplements (Ensure 18:00 Throat Lozenges PHA 3/11/25 In Process (Cepastat Lozenges) 12:00 Lorazepam 2mg/Ml Inj PHA 12/12/24 In Process (Ativan Inj) 12:00 Blood Culture UNA 12/13/24 In Process 05:00 Hydrocodone-Acet PHA 12/12/24 In Process 5/325mg Tab ([place] 16:30 Vancomycin 500mg/100ml PHA 12/13/24 In Process 14:00 Date of Service: Dec 13, 2024 Billing Provider: CHARLI WOODWARD MD Common Visit Codes: [id number] INP/OBS CARE(HIGH) CHARLI WOODWARD MD Dec 13, 2024 11:39
--- NOTE | 2024-12-13 11:39 | DVHPN2 ---
Progress Note Date Seen: Dec 13, 2024 Medical Necessity Reason Pt with a Central, PICC or Fol: Yes The following are medically ne: Galeana Catheter Reason for galeana catheter: Strict I&O Subjective Review of Systems: RESPIRATORY:Abnormal Other Systems: Patient seen and examined by myself today in follow-up Objective vital signs Vital Sign Date Time Temp Pulse Resp B/P (MAP) Pulse Ox O2 Delivery O2 Flow Rate FiO2 12/13/24 11:16 91 Nasal Cannula* 5 40 12/13/24 11:16 102 18 12/13/24 04:30 98.4 121/84 (96) 98.4 Total Intake and Output 12/12/24 12/12/24 12/13/24 15:00 23:00 07:00 Intake Total 1058.3 ml 400 ml Output Total 480 ml Balance 1058.3 ml -80 ml medications Current Medications Medications Dose Ordered Sig/Tanner Route Start Time Stop Time Status Last Admin Dose Admin Albuterol 2.5 mg Q6HPRN PRN NEB 12/11/24 00:30 Oseltamivir Phosphate 30 mg Q24H PO 12/11/24 10:00 12/16/24 09:59 12/13/24 09:48 30 MG Ondansetron HCl 4 mg Q4HP PRN IV 12/11/24 00:30 Acetaminophen 650 mg Q6HP PRN PO 12/11/24 00:30 12/12/24 03:48 650 MG Nitroglycerin 0.4 mg Q5MINP PRN SL 12/11/24 00:30 Morphine Sulfate 2 mg Q30M PRN IV 12/11/24 00:30 Vancomycin HCl 0 ml @ 0 mls/hr UD IV 12/11/24 10:45 Piperacillin Sod/ Tazobactam Sod 100 ml @ 25 mls/hr Q12HR IV 12/11/24 22:00 12/13/24 09:49 25 MLS/HR Pantoprazole Sodium 40 mg DAILY IV 12/12/24 10:00 12/13/24 09:47 40 MG Ipratropium Celina 0.5 mg Q4HWA NEB 12/11/24 14:00 12/13/24 11:16 0.5 MG Sodium Bicarbonate 50 ml/ Sodium Chloride 1,050 ml @ 75 mls/hr Q14H IV 12/11/24 11:00 12/13/24 06:21 75 MLS/HR Levalbuterol HCl 1.25 mg Q4HWA NEB 12/12/24 10:00 12/13/24 11:16 1.25 MG Enteral Nutritional Formula 240 ml BIDWM PO 12/12/24 18:00 12/13/24 08:00 240 ML Throat Lozenges 1 jan Q2HP PRN MT 12/12/24 12:00 Lorazepam 0.5 mg Q8HP PRN IV 12/12/24 12:00 12/13/24 00:06 0.5 MG Acetaminophen/ Hydrocodone Bitart 1 tab Q4HPRN PRN PO 12/12/24 16:30 Methylprednisolone Sodium Succinate 20 mg BID IV 12/13/24 22:00 UNV Examination: LUNGS:Normal, CVS:Normal, MSK:Normal laboratory and microbiology Laboratory Tests 12/13/24 05:08 Test 12/13/24 05:08 Range/Units Serum Glucose 148 H 74-106 mg/dL Microbiology Date/Time Source Procedure Growth Status 12/11/24 11:35 Blood Blood Culture - Preliminary NO GROWTH AFTER 24 HOURS OF INCUBATION. Resulted Problem List/Assessment/Plan Problem List/Assessment/Plan Acute kidney injury superimposed Chronic Kidney Disease secondary hemodynamic mediated, FeNa > 2% Acute hypoxic respiratory failure, high-flow oxygen COPD exacerbation Encephalopathy Influenza A Pneumonia, multifocal AFib with RVR Hyponatremia due to dehydration Metabolic acidosis Hypokalemia Recommendation Kidney function kidney function continues to improve Increased urine output High BUN to creatinine ratio due to steroids Hyponatremia resolved Galeana catheter Strict I&Os kidney ultrasound reported within normal limits IV antibiotics Pulmonary consult Cardiology consult We will continue to follow Plan discussed with: Patient LA BOYER MD Dec 13, 2024 11:38
[2024-12-13] MEDS: POTASSIUM EFFERVESENT TAB 25 MEQ PO ONE (12:40)
[2024-12-13] MEDS: HYDROcodone-ACET 5/325MG TAB PO PRN (12:46)
[2024-12-13] MEDS ORDERED: VANCOMYCIN PER PHARMACY 0 MG IV SCH (14:00)
[2024-12-13] MEDS: HALOPERIDOL LACTATE 5 MG/ML INJ VIAL IM ONE (15:03)
[2024-12-13] MEDS: VANCOMYCIN 500mg/100mL 100 ML IV ONE (16:13)
[2024-12-13] MEDS ORDERED: TPN PER PHARMACY 0 ML IV SCH (16:30)
--- NOTE | 2024-12-13 17:25 | ECG ---
[facility] Test Date: 2024-12-12 Test Time: 07:57:42 Pat Name: TAMANNA DURAN Department: Room: 0233T A Gender: M Narrative Writer: TODD : 1955 Requested By: ROME GARCIA Order Number: [id number] Reading MD: Nima Tyson Measurements Intervals [place] Rate: 135 P: 0 CT: 0 QRS: -13 QRSD: 113 T: 74 QT: 330 QTc: 495 Interpretive Statements Atrial fibrillation Paired ventricular premature complexes Incomplete RBBB and LAFB Anteroseptal infarct, age indeterminate Electronically Signed On 12-16-2024 18:11:02 PDT by Nima Tyson Please click the below link to view image of tracing.
[2024-12-13 19:38] LABS: INR 1.12 (0.9-1.15); Prothrombin Time 11.7 sec (9.3-11.8)
[2024-12-13] MEDS ORDERED: LORazepam 2MG/ML-1ML VIAL IV PRN (20:00)
[2024-12-13] MEDS: HALOPERIDOL LACTATE 5 MG/ML INJ VIAL IM PRN (20:03)
[2024-12-13 20:26] LABS: Base Excess -3.2 mmol/L (-2.0-3.0)
[2024-12-13] MEDS: MORPHINE SULFATE INJ 2 MG/ml SYRG IV PRN (20:48)
[2024-12-13] MEDS: methylPREDNISolone SOD SUCC 40 MG/ML VL IV SCH (22:00)
[2024-12-13] MEDS ORDERED: DEXTROSE (50%) 50ML SYRG IV SCH (22:00)
[2024-12-13] MEDS: AMINO ACID INFUSION IN D10W 2,000 ML IV ONE (22:02)
[2024-12-13] MEDS: InsuLIN REG 1unit/0.01ml Soln (100units/ml) SC SCH (22:09)
[2024-12-14] MEDS: ACCU-CHEK COMFORT CURVE STRIP VI SCH
[2024-12-14 00:33] VITALS: BP 128/96; PULSE 119; RESP 22; O2SAT 91
[2024-12-14] MEDS: MORPHINE SULFATE INJ 2 MG/ml SYRG IV PRN (04:59)
[2024-12-14 07:20] VITALS: PULSE 126
--- NOTE | 2024-12-14 07:56 | DVHPN2 ---
Changes from previous H/P or p: Changes Additional comments Asked to see patient to confirm . RN at bedside and advised. Called to pronounce patient Praveen Prater Daughter at bedside Sherri Latif at 7:46 a.m. on 12/14/2024 Patient was identified by wrist band and also by patient family member daughter at bedside. Confirmed on EKG asystole. Absence of respirations noted Absence of pulse noted with auscultation and palpation Absence of heart sounds No response to stimuli Pupils fixed and dilated Objective Vitals Vital Signs Date Time Temp Pulse Resp B/P (MAP) Pulse Ox O2 Delivery O2 Flow Rate FiO2 12/14/24 07:20 126 24 126/83 12/14/24 00:33 91 10.0 50 12/13/24 20:00 Room Air* 12/13/24 16:35 98.1 98.1 Intake/Output Intake and Output 12/14/24 07:00 Intake Total 250 ml Output Total 2050 ml Balance -1800 ml Intake Oral 50 ml IV Total 200 ml Output Urine Total 1950 ml Stool Total 100 ml Medications Current Medications Medications Dose Ordered Sig/Tanner Route Start Time Stop Time Status Last Admin Dose Admin Oseltamivir Phosphate 30 mg Q24H PO 12/11/24 10:00 12/16/24 09:59 12/13/24 09:48 30 MG Ondansetron HCl 4 mg Q4HP PRN IV 12/11/24 00:30 Acetaminophen 650 mg Q6HP PRN PO 12/11/24 00:30 12/12/24 03:48 650 MG Nitroglycerin 0.4 mg Q5MINP PRN SL 12/11/24 00:30 Morphine Sulfate 2 mg Q30M PRN IV 12/11/24 00:30 12/14/24 06:16 2 MG Vancomycin HCl 0 ml @ 0 mls/hr UD IV 12/11/24 10:45 Piperacillin Sod/ Tazobactam Sod 100 ml @ 25 mls/hr Q12HR IV 12/11/24 22:00 12/13/24 09:49 25 MLS/HR Pantoprazole Sodium 40 mg DAILY IV 12/12/24 10:00 12/13/24 09:47 40 MG Sodium Bicarbonate 50 ml/ Sodium Chloride 1,050 ml @ 75 mls/hr Q14H IV 12/11/24 11:00 12/13/24 06:21 75 MLS/HR Enteral Nutritional Formula 240 ml BIDWM PO 12/12/24 18:00 12/13/24 18:01 240 ML Throat Lozenges 1 jan Q2HP PRN MT 12/12/24 12:00 Lorazepam 0.5 mg Q8HP PRN IV 12/12/24 12:00 12/13/24 11:44 0.5 MG Acetaminophen/ Hydrocodone Bitart 1 tab Q4HPRN PRN PO 12/12/24 16:30 12/13/24 12:46 1 TAB Methylprednisolone Sodium Succinate 20 mg BID IV 12/13/24 22:00 Amino Acids 0 ml @ 0 mls/hr PER PHARMACY IV 12/13/24 16:30 Haloperidol Lactate 5 mg Q8HPRN PRN IM 12/13/24 16:30 12/14/24 07:01 5 MG Diagnostic Test (Pha) 1 strip Q6HR 12/14/24 00:00 Insulin Human Regular FOLLOW SLIDING SCALE Q6HR SC 12/14/24 00:00 Dextrose 50 ml UD IV 12/13/24 22:00 Lorazepam 1 mg Q1HP PRN IV 12/13/24 20:00 Morphine Sulfate 2 mg Q1HP PRN IV 12/13/24 20:00 12/14/24 07:20 2 MG Laboratory Results Laboratory Tests 12/13/24 05:08 Coagulation Test 12/13/24 18:48 Prothrombin Time 11.7 sec (9.3-11.8) Prothrombin Time INR 1.12 (0.9-1.15) Urinalysis Test 12/10/24 21:30 12/11/24 19:47 Urine Amorphous Crystals Few /hpf (None Seen) Urine Hyaline Casts Mod /lpf (0 - 2) Urine Mucus Few (None Seen) Urine Color Light-yellow (Yellow) Urine Clarity Clear (Clear) Urine pH 5.0 (5.0-9.0) Urine Specific [place] 1.012 (1.001-1.035) Urine Protein 1+ (Negative) H Urine Ketones Negative (Negative) Urine Blood 2+ /uL (Negative) H Urine Nitrite Negative (Negative) Urine Bilirubin Negative (Negative) Urine Urobilinogen Normal mg/dL (Negative) Urine Leukocyte Esterase Negative /uL (Negative) Urine RBC 10 /hpf (0 - 3) Urine Microscopic WBC 4 /HPF (0-3) H Urine Squamous Epithelial Cells Few /hpf (<5) Urine Bacteria Few /hpf (None Seen) H Urine Creatinine 62.24 mg/dL (30.0-125.0) Urine Protein/Creatinine Ratio 1.39 Urine Sodium 56 mmol/L (40-220) Urine Glucose Normal mg/dL (Normal) Urine Total Protein 86.7 mg/dL (1-14) H Blood Gas Results Test 12/13/24 18:35 Arterial Blood pH 7.247 (7.350-7.450) FiO2 % 50.0 Microbiology Microbiology Date/Time Source Procedure Growth Status 12/13/24 05:08 Blood Blood Culture - Preliminary NO GROWTH AFTER 24 HOURS OF INCUBATION. Resulted Assessment/Plan Plan discussed with: Daughter Date of Service: Dec 14, 2024 Billing Provider: LUIS F CONTRERAS Common Visit Codes: [id number] INP/OBS CARE (HIGH) LUIS F CONTRERAS Dec 14, 2024 07:56
--- NOTE | 2024-12-14 12:50 | DVHDS ---
DATE OF DISCHARGE: 12/14/2024 HISTORY OF PRESENT ILLNESS: The patient was a 69-year-old gentleman who was admitted with history of generalized weakness and altered mental status. He had history of COPD, previous colostomy, hypertension, hyperlipidemia and arthritis. HOSPITAL COURSE: The patient had a CT of abdomen and pelvis that showed evidence of cholelithiasis and infiltrates in both lower lobes. The patient's blood culture was positive for Staphylococcus aureus 2/2 cultures that was MSSA. The patient had a chest x-ray that showed evidence of bilateral infiltrates. His tox screen was positive for amphetamines. The patient also had acute renal failure. The patient had worsening respiratory status. The patient, however, refused to be intubated. He was also influenza A positive. The patient, while in the hospital, became increasingly agitated. He was sedated. He was seen in Nephrology consult by Dr. Bautista. Echocardiogram done showed ejection fraction of 55%. The patient was eventually made a comfort measures by the family. He on 12/14/2024. FINAL DIAGNOSES: Therefore, * Acute respiratory failure. * Bilateral pneumonia with sepsis due to Staphylococcus aureus. * Influenza A. * Drug abuse with amphetamines. * Chronic obstructive pulmonary disease with exacerbation. * Hypertension. * Acute renal failure/vasomotor nephropathy. * Tobacco abuse. * History of colostomy with bowel obstruction. * Moderate protein malnutrition. * Comfort measures. MD PHONG Miramontes/ENRIQUE TID: [id number] RECEIPT: [id number]
[2024-12-14 19:56] VITALS: BP 137/75; RESP 25; O2SAT 92
--- NOTE | 2024-12-14 19:56 | RESUS ---
CODE ASSIST ASSESSSMENT Initial Information Code Assist Date: Dec 13, 2024 Code Assist Time: 18:30 Location of Arrest: [facility] Room [facility] [address] Hoyt Time Notified: 18:30 Crash Cart Opened and Supplies: No Situation Staff concerned/worried, speci: Change LOC Situation comment: Patient became tachycardia and tachypneic with altered level of counsciousness-code assist called. Background Background: The patient had a chest x-ray that showed evidence of bilateral infiltrates. The patient had worsening respiratory status. The patient, however, refused to be intubated. He was also influenza A positive. Assessment Temperature (Fahrenheit): 98.1 Blood Pressure Systolic: 137 Blood Pressure Diastolic: 75 Respiratory Rate: 25 O2 Sat by Pulse Oximetry: 92 Recommendations/Interventions Procedures: Accu check, Cardiac Monitoring, BIPAP Outcome Outcome: Transfer to Stepdown Follow up Report Follow up Report Patient to be transferred to [facility] room 266 Team Members Team Members Michell Dasilva Alyssa RN, Eyal Clifford RN, David DEVINE, Abdirahman PENN, Fariha PENNchild care time 38 mins Date of Service: Dec 13, 2024 Billing Provider: AILYN HOYT MD Common Visit Codes: [id number] CARE 30-74 MIN Keysha Pfeiffer Dec 14, 2024 19:56 AILYN HOYT MD Dec 15, 2024 12:24
== END 2024-12-14 07:46 | DRG 871 ==
LOC: ER 20:57 → EDBD 20:57 → OVERFLOW 12-11 00:26 → TELE-EAST 12-11 09:05
PROVIDERS: ADMIT Internal Medicine; ATTEND Internal Medicine
PROC: 5A09357 Assistance with Respiratory Ventilation, Less than 24 Consecutive Hours, Continuous Positive Airway Pressure (ICD-10-PCS; principal; 2024-12-11)
PROC: 5A09357 Assistance with Respiratory Ventilation, Less than 24 Consecutive Hours, Continuous Positive Airway Pressure (ICD-10-PCS; 2024-12-13)
DX: A41.01 Sepsis due to Methicillin susceptible Staphylococcus aureus (principal); J10.08 Influenza due to other identified influenza virus with other specified pneumonia; J96.01 Acute respiratory failure with hypoxia; N17.0 Acute kidney failure with tubular necrosis; J15.211 Pneumonia due to Methicillin susceptible Staphylococcus aureus; E87.1 Hypo-osmolality and hyponatremia; E87.20 Acidosis, unspecified; G93.40 Encephalopathy, unspecified; J44.0 Chronic obstructive pulmonary disease with (acute) lower respiratory infection; J44.1 Chronic obstructive pulmonary disease with (acute) exacerbation; E44.0 Moderate protein-calorie malnutrition; K92.2 Gastrointestinal hemorrhage, unspecified; Z68.1 Body mass index [BMI] 19.9 or less, adult; Z20.822 Contact with and (suspected) exposure to COVID-19; E86.0 Dehydration; I48.91 Unspecified atrial fibrillation; E78.5 Hyperlipidemia, unspecified; F15.10 Other stimulant abuse, uncomplicated; I12.9 Hypertensive chronic kidney disease with stage 1 through stage 4 chronic kidney disease, or unspecified chronic kidney disease; K80.20 Calculus of gallbladder without cholecystitis without obstruction; N18.9 Chronic kidney disease, unspecified; Z72.0 Tobacco use; Z93.3 Colostomy status; Z79.899 Other long term (current) drug therapy; Z88.1 Allergy status to other antibiotic agents
CPT/HCPCS: 36415; 36600; 70450; 71045; 76775; 80048; 80053; 80202; 80307; 80320; 81001; 82270; 82306; 82550; 82570; 82805; 83605; 83690; 83735; 83880; 83970; 84100; 84156; 84300; 84484; 85007; 85025; 85027; 85379; 85610; 86803; 87040; 87077; 87186; 87340; 87426; 87804; 93005; 93306; 94640; 94660; G0378; G9035; J2470; J2543